=== PATIENT | female | born 1935 | race Caucasian/White ===

== ENCOUNTER → 2018-01-25 11:21 | Outpatient (CLI) | payer MEDICARE, OTHER, SELFPAY ==
[2018-01-25 12:32] LABS: AST(SGOT) 19 U/L (15-37); Alanine Aminotransfer ALT/SGPT 19 U/L (13-56); Albumin, Serum 3.1 g/dL (3.2-5.0); Alkaline Phosphatase 112 U/L (45-117); Anion Gap 5 (5-15); BUN 13 mg/dL (7-18); BUN/Creat Ratio 16.5 RATIO (10-20); Calcium,Total 8.1 mg/dL (8.5-10.1); Chloride 105 mmol/L (98-107); Cholesterol 194 mg/dL (200); Creatinine, Serum 0.79 mg/dL (0.55-1.02); EST Glomerular Filtration Rate 75 mL/min (>60); Est Glom Filt Rate - Afr Amer 90 mL/min (>60); Globulin 3.7 g/dL (2.2-4.2); Glucose 122 mg/dL (74-106); Hemoglobin A1c 6.1 % (4.2-6.3); High Density Lipoprotein 49 mg/dL; Potassium 3.4 mmol/L (3.5-5.1); Protein, Total 6.8 g/dL (6.4-8.2); Sodium Level 139 mmol/L (136-145); Triglycerides 217 mg/dL; Very Low Density Lipoprotein 43 mg/dL (5-40)
== END ==
PROVIDERS: Family Provider Family Medicine; PCP Family Medicine; Visit Provider Family Medicine
DX: E11.65 Type 2 diabetes mellitus with hyperglycemia (principal); E11.8 Type 2 diabetes mellitus with unspecified complications; E03.9 Hypothyroidism, unspecified
CPT/HCPCS: 36415; 80048; 80061; 80076; 83036; 84443

== ENCOUNTER 2018-03-18 13:49 | Outpatient (RCR) | payer MEDICARE, OTHER, SELFPAY ==
[2018-03-18 14:01] LABS: Prothrombin Time Fingerstick 30.3 SEC (11.9-14.4)
== END 2018-03-18 15:00 | disposition home or self-care (01) ==
LOC: MTLAB 13:49
PROVIDERS: Family Provider Family Medicine; PCP Family Medicine; Referring Provider Family Medicine; Visit Provider Family Medicine
DX: Z79.01 Long term (current) use of anticoagulants (principal)
CPT/HCPCS: 36416; 85610

== ENCOUNTER → 2018-07-28 12:44 | Outpatient (CLI) | payer MEDICARE, OTHER, SELFPAY ==
[2018-07-14 09:33] VITALS: BMI 26.9
--- NOTE | 2018-07-28 12:52 | ECHOD_ITS ---
Reason For Study: ATRIAL FIB-FLUTTER Left Ventricle Normal LV size. Left ventricular systolic function is normal. The estimated ejection fraction is 60 %. Unable to assess diastolic dysfunction due to arrhythmia. No regional wall motion abnormalities noted. Right Ventricle Normal RV size. Normal systolic function. Atria The left atrium is mildly enlarged. Normal right atrium. Mitral Valve Normal mitral valve. Tricuspid Valve Normal tricuspid valve. Mild (1+) tricuspid valve insufficiency. Pulmonary artery systolic pressure is 28 mmHg. Aortic Valve Normal aortic valve. Trisinus/trileaflet aortic valve. Pulmonic Valve Normal pulmonic valve. Great Vessels Normal aortic root. The pulmonary artery is normal size. Normal inferior vena cava. Pericardium/Pleural No pericardial effusion. MMode/2D Measurements & Calculations LVIDd: 3.8 cm IVSd: 1.0 cm Ao root diam: 2.9 cm LVIDs: 2.0 cm LVPWd: 0.91 cm RVDd: 3.3 cm FS: 46.4 % LAV(MOD-bp): 70.9 ml LVAd ap4: 18.9 cm2 EDV(MOD-sp2): 50.3 ml LAV(MOD-bp) Indexed: 41.0 ml/m2 EDV(MOD-sp4): 46.2 ml EF(MOD-sp2): 66.2 % LAV(MOD-sp2): 80.0 ml EDV(sp4-el): 49.4 ml LAV(MOD-sp4): 62.3 ml LVAs ap4: 10.0 cm2 ESV(MOD-sp4): 15.5 ml ESV(sp4-el): 15.9 ml EF(MOD-sp4): 66.6 % EF(sp4-el): 67.8 % SV(MOD-sp4): 30.8 ml SV(MOD-sp2): 33.3 ml SV(sp4-el): 33.5 ml LA dimension(2D): 4.2 cm LA A4 area: 21.8 cm2 RA A4 area: 15.9 cm2 Doppler Measurements & Calculations MV E max cecile: 87.9 cm/sec Ao V2 max: 117.4 cm/sec LV V1 max: 56.4 cm/sec Ao max P.5 mmHg LV V1 max P.3 mmHg PA V2 max: 54.7 cm/sec TR max cecile: 241.1 cm/sec TR max P.3 mmHg Interpretation Summary Normal LV size. Left ventricular systolic function is normal. The estimated ejection fraction is 60 %. Unable to assess diastolic dysfunction due to arrhythmia. The left atrium is mildly enlarged. Mild (1+) tricuspid valve insufficiency. Pulmonary artery systolic pressure is 28 mmHg. Ordering Physician: Srikanth Powers Referring Physician: JEFFERY CASTILLO Performed By: Rachel Vides RDCS
== END ==
PROVIDERS: Family Provider Family Medicine; PCP Family Medicine; Referring Provider Internal Medicine Cardiovascular Disease; Visit Provider Internal Medicine Cardiovascular Disease
DX: I48.91 Unspecified atrial fibrillation (principal); I48.92 Unspecified atrial flutter; I25.2 Old myocardial infarction
CPT/HCPCS: 93306

== ENCOUNTER 2018-09-11 10:06 | Inpatient (IN) | payer MEDICARE, OTHER, SELFPAY ==
[2018-07-14 09:33] VITALS: BMI 26.9
[2018-09-11] VITALS (27 sets, daily range): BP systolic 85–119; BP diastolic 44–75; PULSE 66–80; RESP 13–20; TEMP 36.4–37.2; O2SAT 88–98; BMI 28.3; BMI 28.2
[2018-09-11] MEDS: 0.9% Normal Saline 1,000 ML 100 ML IV ×2 (11:39→14:05)
--- NOTE | 2018-09-11 12:01 | PCM.HP.STD ---
Problem List (1) Severe sepsis Status: Acute (2) Ureteral stone Status: Acute (3) UTI (urinary tract infection) Status: Acute (4) CAD (coronary artery disease) Status: Chronic (5) Hyperlipidemia Status: Chronic (6) Essential (primary) hypertension Status: Chronic (7) History of coronary artery stent placement Status: Chronic Comment: PCI-MARYBEL-Mid RCA w 3.0 x 23 mm Promus Stent 12/20/2010 (8) Chronic atrial fibrillation Status: Chronic (9) Pulmonary embolism Status: Chronic History of Present Illness Date of Admission: 09/11/18 Chief Complaint: RLQ pain. The patient is a 83 year old F with pmhx of CAD with prior stents, chronic Afib on coumadin, T2DM, HTN, HLD, kidney stones who was transferred here from [facility] with severe sepsis, UTI, and an obstructing ureteral stone. She presented to the ER with RLQ pain with some pain radiating into the Right flank. She has had ongoing symptoms worsening for about two weeks. She does report dysuria and increased urinary frequency with some red tint to her urine. She also complains of chills. She has had prior surgery for stones. She will be taken to the OR by Dr. Dubose today. She has also been increasingly confused and weak at home. She is forgetful of names and combative at times. She leans forward while walking and has fallen about 7 times. She has a resting tremor. She was recently seen by Dr Felton who started her on antidepressants. [] Past Medical History Past Medical History (Chronic Problems): Chronic Problems (Last Reviewed 07/14/18 @ 10:01 by Srikanth Powers MD) CAD (coronary artery disease) (Chronic) Hyperlipidemia (Chronic) Atherosclerosis of coronary artery of [place] heart without angina pectoris (Chronic) PCI-MARYBEL-Mid RCA w 3.0 x 23 mm Promus Stent 12/20/2010 Essential (primary) hypertension (Chronic) History of coronary artery stent placement (Chronic 12/20/10) PCI-MARYBEL-Mid RCA w 3.0 x 23 mm Promus Stent 12/20/2010 Chronic atrial fibrillation (Chronic) Pulmonary embolism (Chronic) Medical History: Medical History (Last Reviewed 07/14/18 @ 10:01 by Srikanth Powers MD) History of non-ST elevation myocardial infarction (NSTEMI) (Resolved) Onset Date: 12/2010 I25.2 Hyperlipidemia (Chronic) E78.5 Atherosclerosis of coronary artery of [place] heart without angina pectoris (Chronic) I25.10 PCI-MARYBEL-Mid RCA w 3.0 x 23 mm Promus Stent 12/20/2010 Essential (primary) hypertension (Chronic) I10 Chronic atrial fibrillation (Chronic) I48.2 Pulmonary embolism (Chronic) I26.99 History of nephrolithiasis Z87.442 Hypothyroidism E03.9 Allergies codeine Allergy (Verified 07/14/18 09:33) Chest tightness levofloxacin [From Levaquin] Allergy (Verified 07/14/18 09:33) Unknown Penicillins Allergy (Verified 07/14/18 09:33) Rash Qjukmza-Rko-Zvn Reductase Inhibitor Allergy (Verified 07/14/18 09:33) myalgias Sulfa (Sulfonamide Antibiotics) Allergy (Verified 07/14/18 09:33) unknown Home Medications: Ambulatory Orders Medication Instructions Recorded Albuterol IH (ProAir) [Proair Hfa 1 - 2 puff INHALATION Q4H PRN PRN 05/17/15 (SP)Vent Pts] Amlodipine [Norvasc] 10 mg PO DAILY 05/17/15 Aspirin [Aspirin, Baby] 81 mg PO DAILY@0800 05/17/15 Levothyroxine [Synthroid] 50 mcg PO DAILY 05/17/15 Ranitidine [Zantac] 150 mg PO BID 05/17/15 Warfarin [Coumadin (PBKC)] 2 mg PO DAILY 05/17/15 Warfarin [Coumadin ([facility]KC)] 4 mg PO QWEEK 05/17/15 ferrous sulfate 325 mg (65 mg 325 mg PO BID tab 10/27/17 iron) tablet cyanocobalamin (vitamin B-12) 1,000 mcg PO QDAY 10/30/17 1,000 mcg capsule metoprolol tartrate 25 mg tablet 25 mg PO BID 10/30/17 clonazepam 1 mg tablet 1 mg PO BID 07/14/18 esomeprazole magnesium 40 mg 40 mg PO DAILY 07/14/18 capsule,delayed release Surgical History: Surgical History (Last Reviewed 07/14/18 @ 10:01 by Srikanth Powers MD) History of coronary artery stent placement (Chronic) Onset Date: 12/20/10 Z95.5 PCI-MARYBEL-Mid RCA w 3.0 x 23 mm Promus Stent 12/20/2010 History of cataract surgery Z98.49 History of hysterectomy Z90.710 Hx of cholecystectomy Z90.49 Surgical History: cholecystectomy, hysterectomy, knee replacement cyst removal from her left breast Psychiatric History: Depression 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 Denies: Fever, Weight Change HEENT: Denies: Head Aches, Sinus Congestion, Sinus Drainage Cardiovascular: Denies: Chest Pain, Chest Tightness, Edema, Heaviness, Light Headedness, Palpitations Respiratory: Denies: Cough, Shortness of Breath, Shortness of breath at rest, Sputum production, Wheezing Gastrointestinal: Reports: Abdominal Pain - RLQ, - - R flank pain. Denies: Nausea, Vomiting Genitourinary: Reports: Dysuria, Frequency, Hematuria Musculoskeletal: Denies: Joint Pain, Joint Tenderness Skin: Denies: Rash, Wounds Neurological: Denies: Numbness, Tingling, Focal weakness Psychiatric: Denies: Anxiety, Depression, Homicidal Ideations, Suicidal Ideations Hematologic/ Lymphatic: Denies: Easy Bruising, Easy Bleeding VTE Information - Inpt Only VTE Present on Admission: No VTE Mechan Device Prophylaxis: None VTE Pharm Prophylaxis ordered?: No Reason prophylaxis not ordered:: Medical Contraindication Patient Problems: Active and Suspected Problems (Last Reviewed 07/14/18 @ 10:01 by Srikanth Powers MD) UTI (urinary tract infection) (Acute) Ureteral stone (Acute) Severe sepsis (Acute) - Physical Exam General: Alert, Oriented x3, Cooperative HEENT: Atraumatic, PERRLA, EOMI, Normocephalic Neck: Supple, No JVD, Negative Carotid Bruits Lungs: Clear to auscultation, Normal air movement Cardiovascular: No murmurs, Irregular Rate Abdomen: Bowel Sounds Present, Soft, Tender - mild RLQ tenderness Extremities: No edema, Capillary Refill Less than 3 Seconds Skin: No rashes, No breakdown Musculoskeletal: No Tenderness to Palpation of Joints or Extremities Neurological: Cranial nerves II-XII grossly intact Psych/Mental Status: Normal Affect, Appropriate Vital Signs Temp Pulse Resp BP Pulse Ox 98.8 F 78 17 93/53 L 94 09/11/18 11:00 09/11/18 11:00 09/11/18 11:00 09/11/18 11:00 09/11/18 11:00 Oxygen Flow Rate (L/min) 2 Oxygen Delivery Method Nasal Cannula Weight: 165 lb 2.02 oz Body Mass Index (BMI) 28.2 Intake and Output for Last 24 Hours 09/09/18 09/10/18 09/11/18 23:59 23:59 23:59 Intake Total 129 / 129 Output Total 0 / 0 Balance 129 / 129 Laboratory Tests Past 24 Hrs 09/11/18 11:00 Blood Type Pending Assessment/Plan All Active Problems (Last Reviewed 07/14/18 @ 10:01 by Srikanth Powers MD) UTI (urinary tract infection) (Acute) Ureteral stone (Acute) Severe sepsis (Acute) History of non-ST elevation myocardial infarction (NSTEMI) (Resolved 12/2010) 1. Acute severe sepsis 2/2 UTI and right ureteral stone - rocephin. At [facility] had [facility] with right obstructing ureteral stone, + UA, low white count, elevated lactate. Dr. Dubose consulted, pt to OR today. 2. Chronic Afib - rate controlled. Continue metoprolol, hold warfarin. Will receive FFP prior to surgery. 3. Worsening home weakness, poor ambulation, confusion, combativeness-suspect dementia, possibly Parkinson's-start Aricept. 4. Ecsacqzfbz-ppsxqov-vtscpyhw seen by Dr. Felton and started on antidepressant-we will continue. Hold clonazepam for now given borderline low blood pressure. 5. History of CAD-had stents 9 years ago[address] Powers. 6. Hypertension-borderline low. Will monitor. 7. GERD-on PPI. 8. Hypothyroidism-continue Synthroid. DVT prophylaxis: SCDs. Discharge planning: PT and OT. Lives with her , has multiple falls recently and worsening mentation at home. May need nursing home placement. This patient was seen by Grady Joel PA-C under the supervision of Doctor Loredo.
--- NOTE | 2018-09-11 12:10 | NURSING ---
ENTRY LEVEL FINANCE Kim called for patient to be brought to PACU. Celina RN informed ENTRY LEVEL FINANCE that this RN was in the process of restarting a new IV because one was leaking. Per Celina, FILING CLERK RN stated to bring the patient down sooner and she will start the IV. New IV not started per ENTRY LEVEL FINANCE request. This RN then called PACU and spoke with Kim RN that the FFP was not ready yet and would be ready in about 20-30mins per blood bank, and should patient be brought down before FFP given? The ENTRY LEVEL FINANCE stated that she will call this RN back after she confirms with DRY JANITOR. Several minutes later, Kim ENTRY LEVEL FINANCE called ICU back and Celina NIETO spoke with her. Accoding to Celina NIEOT, ENTRY LEVEL FINANCE stated to bring the patient down however, ICU staff will need to bring them the FFP due to staffing of PACU.
--- NOTE | 2018-09-11 12:11 | HP.PCM_ITS ---
Problem List (1) Severe sepsis Status: Acute (2) Ureteral stone Status: Acute (3) UTI (urinary tract infection) Status: Acute (4) CAD (coronary artery disease) Status: Chronic (5) Hyperlipidemia Status: Chronic (6) Essential (primary) hypertension Status: Chronic (7) History of coronary artery stent placement Status: Chronic Comment: PCI-MARYBEL-Mid RCA w 3.0 x 23 mm Promus Stent 12/20/2010 (8) Chronic atrial fibrillation Status: Chronic (9) Pulmonary embolism Status: Chronic History of Present Illness Date of Admission: 09/11/18 Chief Complaint: RLQ pain. The patient is a 83 year old F with pmhx of CAD with prior stents, chronic Afib on coumadin, T2DM, HTN, HLD, kidney stones who was transferred here from [facility] with severe sepsis, UTI, and an obstructing ureteral stone. She presented to the ER with RLQ pain with some pain radiating into the Right flank. She has had ongoing symptoms worsening for about two weeks. She does report dysuria and increased urinary frequency with some red tint to her urine. She also complains of chills. She has had prior surgery for stones. She will be taken to the OR by Dr. Dubose today. She has also been increasingly confused and weak at home. She is forgetful of names and combative at times. She leans forward while walking and has fallen about 7 times. She has a resting tremor. She was recently seen by Dr Felton who started her on antidepressants. [] Past Medical History Past Medical History (Chronic Problems): Chronic Problems (Last Reviewed 07/14/18 @ 10:01 by Srikanth Powers MD) CAD (coronary artery disease) (Chronic) Hyperlipidemia (Chronic) Atherosclerosis of coronary artery of [place] heart without angina pectoris (Chronic) PCI-MARYBEL-Mid RCA w 3.0 x 23 mm Promus Stent 12/20/2010 Essential (primary) hypertension (Chronic) History of coronary artery stent placement (Chronic 12/20/10) PCI-MARYBEL-Mid RCA w 3.0 x 23 mm Promus Stent 12/20/2010 Chronic atrial fibrillation (Chronic) Pulmonary embolism (Chronic) Medical History: Medical History (Last Reviewed 07/14/18 @ 10:01 by Srikanth Powers MD) History of non-ST elevation myocardial infarction (NSTEMI) (Resolved) Onset Date: 12/2010 I25.2 Hyperlipidemia (Chronic) E78.5 Atherosclerosis of coronary artery of [place] heart without angina pectoris (Chronic) I25.10 PCI-MARYBEL-Mid RCA w 3.0 x 23 mm Promus Stent 12/20/2010 Essential (primary) hypertension (Chronic) I10 Chronic atrial fibrillation (Chronic) I48.2 Pulmonary embolism (Chronic) I26.99 History of nephrolithiasis Z87.442 Hypothyroidism E03.9 Allergies codeine Allergy (Verified 07/14/18 09:33) Chest tightness levofloxacin [From Levaquin] Allergy (Verified 07/14/18 09:33) Unknown Penicillins Allergy (Verified 07/14/18 09:33) Rash Mcbhfzl-Nvc-Sus Reductase Inhibitor Allergy (Verified 07/14/18 09:33) myalgias Sulfa (Sulfonamide Antibiotics) Allergy (Verified 07/14/18 09:33) unknown Home Medications: Ambulatory Orders Medication Instructions Recorded Albuterol IH (ProAir) [Proair Hfa 1 - 2 puff INHALATION Q4H PRN PRN 05/17/15 (SP)Vent Pts] Amlodipine [Norvasc] 10 mg PO DAILY 05/17/15 Aspirin [Aspirin, Baby] 81 mg PO DAILY@0800 05/17/15 Levothyroxine [Synthroid] 50 mcg PO DAILY 05/17/15 Ranitidine [Zantac] 150 mg PO BID 05/17/15 Warfarin [Coumadin (PBKC)] 2 mg PO DAILY 05/17/15 Warfarin [Coumadin (PBKC)] 4 mg PO QWEEK 05/17/15 ferrous sulfate 325 mg (65 mg 325 mg PO BID tab 10/27/17 iron) tablet cyanocobalamin (vitamin B-12) 1,000 mcg PO QDAY 10/30/17 1,000 mcg capsule metoprolol tartrate 25 mg tablet 25 mg PO BID 10/30/17 clonazepam 1 mg tablet 1 mg PO BID 07/14/18 esomeprazole magnesium 40 mg 40 mg PO DAILY 07/14/18 capsule,delayed release Surgical History: Surgical History (Last Reviewed 07/14/18 @ 10:01 by Srikanth Powers MD) History of coronary artery stent placement (Chronic) Onset Date: 12/20/10 Z95.5 PCI-MARYBEL-Mid RCA w 3.0 x 23 mm Promus Stent 12/20/2010 History of cataract surgery Z98.49 History of hysterectomy Z90.710 Hx of cholecystectomy Z90.49 Surgical History: cholecystectomy, hysterectomy, knee replacement cyst removal from her left breast Psychiatric History: Depression 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 Denies: Fever, Weight Change HEENT: Denies: Head Aches, Sinus Congestion, Sinus Drainage Cardiovascular: Denies: Chest Pain, Chest Tightness, Edema, Heaviness, Light Headedness, Palpitations Respiratory: Denies: Cough, Shortness of Breath, Shortness of breath at rest, Sputum production, Wheezing Gastrointestinal: Reports: Abdominal Pain - RLQ, - - R flank pain. Denies: Nausea, Vomiting Genitourinary: Reports: Dysuria, Frequency, Hematuria Musculoskeletal: Denies: Joint Pain, Joint Tenderness Skin: Denies: Rash, Wounds Neurological: Denies: Numbness, Tingling, Focal weakness Psychiatric: Denies: Anxiety, Depression, Homicidal Ideations, Suicidal Ideations Hematologic/ Lymphatic: Denies: Easy Bruising, Easy Bleeding VTE Information - Inpt Only VTE Present on Admission: No VTE Mechan Device Prophylaxis: None VTE Pharm Prophylaxis ordered?: No Reason prophylaxis not ordered:: Medical Contraindication Patient Problems: Active and Suspected Problems (Last Reviewed 07/14/18 @ 10:01 by Srikanth Powers MD) UTI (urinary tract infection) (Acute) Ureteral stone (Acute) Severe sepsis (Acute) - Physical Exam General: Alert, Oriented x3, Cooperative HEENT: Atraumatic, PERRLA, EOMI, Normocephalic Neck: Supple, No JVD, Negative Carotid Bruits Lungs: Clear to auscultation, Normal air movement Cardiovascular: No murmurs, Irregular Rate Abdomen: Bowel Sounds Present, Soft, Tender - mild RLQ tenderness Extremities: No edema, Capillary Refill Less than 3 Seconds Skin: No rashes, No breakdown Musculoskeletal: No Tenderness to Palpation of Joints or Extremities Neurological: Cranial nerves II-XII grossly intact Psych/Mental Status: Normal Affect, Appropriate Vital Signs Temp Pulse Resp BP Pulse Ox 98.8 F 78 17 93/53 L 94 09/11/18 11:00 09/11/18 11:00 09/11/18 11:00 09/11/18 11:00 09/11/18 11:00 Oxygen Flow Rate (L/min) 2 Oxygen Delivery Method Nasal Cannula Weight: 165 lb 2.02 oz Body Mass Index (BMI) 28.2 Intake and Output for Last 24 Hours 09/09/18 09/10/18 09/11/18 23:59 23:59 23:59 Intake Total 129 / 129 Output Total 0 / 0 Balance 129 / 129 Laboratory Tests Past 24 Hrs 09/11/18 11:00 Blood Type Pending Assessment/Plan All Active Problems (Last Reviewed 07/14/18 @ 10:01 by Srikanth Powers MD) UTI (urinary tract infection) (Acute) Ureteral stone (Acute) Severe sepsis (Acute) History of non-ST elevation myocardial infarction (NSTEMI) (Resolved 12/2010) 1. Acute severe sepsis 2/2 UTI and right ureteral stone - rocephin. At [facility] had [facility] with right obstructing ureteral stone, + UA, low white count, elevated lactate. Dr. Dubose consulted, pt to OR today. 2. Chronic Afib - rate controlled. Continue metoprolol, hold warfarin. Will receive FFP prior to surgery. 3. Worsening home weakness, poor ambulation, confusion, combativeness-suspect dementia, possibly Parkinson's-start Aricept. 4. Jzxbhknccd-qlkgffn-cbviislb seen by Dr. Felton and started on antidepressant-we will continue. Hold clonazepam for now given borderline low blood pressure. 5. History of CAD-had stents 9 years ago[address] with [address] Powers. 6. Hypertension-borderline low. Will monitor. 7. GERD-on PPI. 8. Hypothyroidism-continue Synthroid. DVT prophylaxis: SCDs. Discharge planning: PT and OT. Lives with her , has multiple falls recently and worsening mentation at home. May need shelter placement. This patient was seen by Grady Joel PA-C under the supervision of Doctor Loredo.
--- NOTE | 2018-09-11 12:15 | NURSING ---
to PACU per bed, [employer] LIA[employer] OFFICER in attendance
--- NOTE | 2018-09-11 12:42 | PCM.CONS.U ---
Problem List (1) Ureteral stone Status: Acute Comment: right Reason for Consult Date of Consultation: 09/11/18 Reason for Consultation: Obstructing ureteral calculus infection History of Present Illness: The patient is a 83 year old female presented to hospital with an obstructing stone in the distal right ureter and infection with a urinary tract infection and sepsis low blood pressure she was transferred from an outside hospital for further care. Past Medical History Past Medical History (Chronic Problems): Chronic Problems (Last Reviewed 07/14/18 @ 10:01 by Srikanth Powers MD) CAD (coronary artery disease) (Chronic) Hyperlipidemia (Chronic) Atherosclerosis of coronary artery of [place] heart without angina pectoris (Chronic) PCI-MARYBEL-Mid RCA w 3.0 x 23 mm Promus Stent 12/20/2010 Essential (primary) hypertension (Chronic) History of coronary artery stent placement (Chronic 12/20/10) PCI-MARYBEL-Mid RCA w 3.0 x 23 mm Promus Stent 12/20/2010 Chronic atrial fibrillation (Chronic) Pulmonary embolism (Chronic) Medical History: Medical History (Last Reviewed 09/11/18 @ 12:43 by Baljinder Dubose MD) History of non-ST elevation myocardial infarction (NSTEMI) (Resolved) Onset Date: 12/2010 I25.2 Hyperlipidemia (Chronic) E78.5 Atherosclerosis of coronary artery of [place] heart without angina pectoris (Chronic) I25.10 PCI-MARYBEL-Mid RCA w 3.0 x 23 mm Promus Stent 12/20/2010 Essential (primary) hypertension (Chronic) I10 Chronic atrial fibrillation (Chronic) I48.2 Pulmonary embolism (Chronic) I26.99 History of nephrolithiasis Z87.442 Hypothyroidism E03.9 Allergies codeine Allergy (Verified 07/14/18 09:33) Chest tightness levofloxacin [From Levaquin] Allergy (Verified 07/14/18 09:33) Unknown Penicillins Allergy (Verified 07/14/18 09:33) Rash Befjeix-Rei-Luj Reductase Inhibitor Allergy (Verified 07/14/18 09:33) myalgias Sulfa (Sulfonamide Antibiotics) Allergy (Verified 07/14/18 09:33) unknown Home Medications: Ambulatory Orders Medication Instructions Recorded Albuterol IH (ProAir) [Proair Hfa 1 - 2 puff INHALATION Q4H PRN PRN 05/17/15 (SP)Vent Pts] Amlodipine [Norvasc] 10 mg PO DAILY 05/17/15 Aspirin [Aspirin, Baby] 81 mg PO DAILY@0800 05/17/15 Levothyroxine [Synthroid] 50 mcg PO DAILY 05/17/15 Ranitidine [Zantac] 150 mg PO BID 05/17/15 Warfarin [Coumadin ([facility])] 2 mg PO DAILY 05/17/15 Warfarin [Coumadin ([facility])] 4 mg PO QWEEK 05/17/15 ferrous sulfate 325 mg (65 mg 325 mg PO BID tab 10/27/17 iron) tablet cyanocobalamin (vitamin B-12) 1,000 mcg PO QDAY 10/30/17 1,000 mcg capsule metoprolol tartrate 25 mg tablet 25 mg PO BID 10/30/17 clonazepam 1 mg tablet 1 mg PO BID 07/14/18 esomeprazole magnesium 40 mg 40 mg PO DAILY 07/14/18 capsule,delayed release Surgical History: Surgical History (Last Reviewed 09/11/18 @ 12:43 by Baljinder Dubose MD) History of coronary artery stent placement (Chronic) Onset Date: 12/20/10 Z95.5 PCI-MARYBEL-Mid RCA w 3.0 x 23 mm Promus Stent 12/20/2010 History of cataract surgery Z98.49 History of hysterectomy Z90.710 Hx of cholecystectomy Z90.49 Surgical History: cholecystectomy, hysterectomy, knee replacement cyst removal from her left breast Psychiatric History: 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 Denies: Weight Change HEENT: Denies: Head Aches, Sinus Congestion, Sinus Drainage Cardiovascular: Denies: Chest Pain, Palpitations Respiratory: Denies: Cough, Shortness of breath at rest, Sputum production Gastrointestinal: Reports: Abdominal Pain. Denies: Nausea, Vomiting Genitourinary: Denies: Dysuria Musculoskeletal: Denies: Joint Pain, Joint Tenderness Skin: Denies: Rash, Wounds Neurological: Denies: Numbness, Tingling, Focal weakness Psychiatric: Denies: Anxiety, Depression, Homicidal Ideations, Suicidal Ideations Hematologic/ Lymphatic: Denies: Easy Bruising, Easy Bleeding Physical Exam - Physical Exam Vital Signs Temp 98.7 F 09/11/18 12:00 Pulse 76 09/11/18 12:00 Resp 18 09/11/18 12:00 BP 97/46 L 09/11/18 12:00 Pulse Ox 90 09/11/18 12:00 Intake & Output 09/09/18 09/10/18 09/11/18 23:59 23:59 23:59 Intake Total 129 / 129 Output Total 0 / 0 Balance 129 / 129 Weight: 74.9 kg Intake: Oral 0 / 0 IV fluid/meds 129 / 129 Output: Urine 0 / 0 General: Alert, Oriented x3 HEENT: Atraumatic Oral: Moist Mucosa Neck: Supple Lungs: Normal air movement Cardiovascular: Regular rate Abdomen: Soft, Obese Rectal: Exam deferred Laboratory Tests Past 24 Hrs 09/11/18 11:00 Blood Type O POSITIVE Assessment/Plan All Active Problems (Last Reviewed 07/14/18 @ 10:01 by Srikanth Powers MD) UTI (urinary tract infection) (Acute) Ureteral stone (Acute) Severe sepsis (Acute) History of non-ST elevation myocardial infarction (NSTEMI) (Resolved 12/2010) 83-year-old female with obstructing stone in the right ureter, she is on IV antibiotics, clinically stable at this point but is septic. Will take her to surgery today for cystoscopy and right stent placement. Spoke with the family and the patient regarding the condition she understands at this point where it is going to alleviate the blockage and the infection with a stent and that later on showed to have surgery to remove the stone. The patient signed a consent form all her questions were addressed, I spoke to the family daughters and son in law, all their questions were addressed and stent will be placed today hopefully she will be stable to the floor afterwards.
--- NOTE | 2018-09-11 12:45 | CON.PCM_ITS ---
Problem List (1) Ureteral stone Status: Acute Comment: right Reason for Consult Date of Consultation: 09/11/18 Reason for Consultation: Obstructing ureteral calculus infection History of Present Illness: The patient is a 83 year old female presented to hospital with an obstructing stone in the distal right ureter and infection with a urinary tract infection and sepsis low blood pressure she was transferred from an outside hospital for further care. Past Medical History Past Medical History (Chronic Problems): Chronic Problems (Last Reviewed 07/14/18 @ 10:01 by Srikanth Powers MD) CAD (coronary artery disease) (Chronic) Hyperlipidemia (Chronic) Atherosclerosis of coronary artery of [place] heart without angina pectoris (Chronic) PCI-MARYBEL-Mid RCA w 3.0 x 23 mm Promus Stent 12/20/2010 Essential (primary) hypertension (Chronic) History of coronary artery stent placement (Chronic 12/20/10) PCI-MARYBEL-Mid RCA w 3.0 x 23 mm Promus Stent 12/20/2010 Chronic atrial fibrillation (Chronic) Pulmonary embolism (Chronic) Medical History: Medical History (Last Reviewed 09/11/18 @ 12:43 by Baljinder Dubose MD) History of non-ST elevation myocardial infarction (NSTEMI) (Resolved) Onset Date: 12/2010 I25.2 Hyperlipidemia (Chronic) E78.5 Atherosclerosis of coronary artery of [place] heart without angina pectoris (Chronic) I25.10 PCI-MARYBEL-Mid RCA w 3.0 x 23 mm Promus Stent 12/20/2010 Essential (primary) hypertension (Chronic) I10 Chronic atrial fibrillation (Chronic) I48.2 Pulmonary embolism (Chronic) I26.99 History of nephrolithiasis Z87.442 Hypothyroidism E03.9 Allergies codeine Allergy (Verified 07/14/18 09:33) Chest tightness levofloxacin [From Levaquin] Allergy (Verified 07/14/18 09:33) Unknown Penicillins Allergy (Verified 07/14/18 09:33) Rash Vgfwlqz-Imz-Spp Reductase Inhibitor Allergy (Verified 07/14/18 09:33) myalgias Sulfa (Sulfonamide Antibiotics) Allergy (Verified 07/14/18 09:33) unknown Home Medications: Ambulatory Orders Medication Instructions Recorded Albuterol IH (ProAir) [Proair Hfa 1 - 2 puff INHALATION Q4H PRN PRN 05/17/15 (SP)Vent Pts] Amlodipine [Norvasc] 10 mg PO DAILY 05/17/15 Aspirin [Aspirin, Baby] 81 mg PO DAILY@0800 05/17/15 Levothyroxine [Synthroid] 50 mcg PO DAILY 05/17/15 Ranitidine [Zantac] 150 mg PO BID 05/17/15 Warfarin [Coumadin ([facility])] 2 mg PO DAILY 05/17/15 Warfarin [Coumadin ([facility])] 4 mg PO QWEEK 05/17/15 ferrous sulfate 325 mg (65 mg 325 mg PO BID tab 10/27/17 iron) tablet cyanocobalamin (vitamin B-12) 1,000 mcg PO QDAY 10/30/17 1,000 mcg capsule metoprolol tartrate 25 mg tablet 25 mg PO BID 10/30/17 clonazepam 1 mg tablet 1 mg PO BID 07/14/18 esomeprazole magnesium 40 mg 40 mg PO DAILY 07/14/18 capsule,delayed release Surgical History: Surgical History (Last Reviewed 09/11/18 @ 12:43 by Baljinder Dubose MD) History of coronary artery stent placement (Chronic) Onset Date: 12/20/10 Z95.5 PCI-MARYBEL-Mid RCA w 3.0 x 23 mm Promus Stent 12/20/2010 History of cataract surgery Z98.49 History of hysterectomy Z90.710 Hx of cholecystectomy Z90.49 Surgical History: cholecystectomy, hysterectomy, knee replacement cyst removal from her left breast Psychiatric History: Depression 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 Denies: Weight Change HEENT: Denies: Head Aches, Sinus Congestion, Sinus Drainage Cardiovascular: Denies: Chest Pain, Palpitations Respiratory: Denies: Cough, Shortness of breath at rest, Sputum production Gastrointestinal: Reports: Abdominal Pain. Denies: Nausea, Vomiting Genitourinary: Denies: Dysuria Musculoskeletal: Denies: Joint Pain, Joint Tenderness Skin: Denies: Rash, Wounds Neurological: Denies: Numbness, Tingling, Focal weakness Psychiatric: Denies: Anxiety, Depression, Homicidal Ideations, Suicidal Ideations Hematologic/ Lymphatic: Denies: Easy Bruising, Easy Bleeding Physical Exam - Physical Exam Vital Signs Temp 98.7 F 09/11/18 12:00 Pulse 76 09/11/18 12:00 Resp 18 09/11/18 12:00 BP 97/46 L 09/11/18 12:00 Pulse Ox 90 09/11/18 12:00 Intake & Output 09/09/18 09/10/18 09/11/18 23:59 23:59 23:59 Intake Total 129 / 129 Output Total 0 / 0 Balance 129 / 129 Weight: 74.9 kg Intake: Oral 0 / 0 IV fluid/meds 129 / 129 Output: Urine 0 / 0 General: Alert, Oriented x3 HEENT: Atraumatic Oral: Moist Mucosa Neck: Supple Lungs: Normal air movement Cardiovascular: Regular rate Abdomen: Soft, Obese Rectal: Exam deferred Laboratory Tests Past 24 Hrs 09/11/18 11:00 Blood Type O POSITIVE Assessment/Plan All Active Problems (Last Reviewed 07/14/18 @ 10:01 by Srikanth Powers MD) UTI (urinary tract infection) (Acute) Ureteral stone (Acute) Severe sepsis (Acute) History of non-ST elevation myocardial infarction (NSTEMI) (Resolved 12/2010) 83-year-old female with obstructing stone in the right ureter, she is on IV antibiotics, clinically stable at this point but is septic. Will take her to surgery today for cystoscopy and right stent placement. Spoke with the family and the patient regarding the condition she understands at this point where it is going to alleviate the blockage and the infection with a stent and that later on showed to have surgery to remove the stone. The patient signed a consent form all her questions were addressed, I spoke to the family daughters and son in law, all their questions were addressed and stent will be placed today hopefully she will be stable to the floor afterwards.
[2018-09-11] MEDS: Lidocaine Jelly 2% 20 ML Syringe (URO-JET) 20 APPLIC (13:02)
--- NOTE | 2018-09-11 13:23 | PCM.OPRPT ---
Problem List (1) Ureteral stone Status: Acute Comment: right Report of Operation Date of Procedure: 09/11/18 Pre-Operative Diagnosis: Right proximal 8 mm obstructing ureteral calculi with severe sepsis and hydronephrosis and pyelonephritis Post-Operative Diagnosis: The same Surgery/Procedure Performed:: Cystoscopy right retrograde pyelogram, right stent placement interpretation of radiographic images. Description of Surgical Findings:: 83-year-old female taken back to the operating room after smooth induction of local anesthesia she was placed in dorsolithotomy position on inspection she had a severe cystocele went into the bladder with a 21 [place] rigid cystourethroscope no tumors or stones were identified within the bladder she had fairly foul-smelling urine which was drained, I then cannulated the right ureteral orifice with a Glidewire advanced the Pollack catheter up into the kidney contrast was already in the kidney from prior contrast we then reviewed the retrograde pyelogram advanced a wire past the stone hard to see the stone, place a stent advancing the stent over the wire and then once a stent was in good position I pulled the wire the stent coiled in the kidney bladder and kidney renal pelvis in good position we then drained the bladder I then sent off for specimen as a culture from the urine. Patient's anesthesia was reversed she is taken back to PACU in good condition. Type of Anesthesia:: Local MAC Drains: stent right. - Admit VTE Documentation VTE Present on Admission: No VTE Mechan Device Prophylaxis: SCD's
--- NOTE | 2018-09-11 14:01 | EKG12_ITS ---
Test Reason : POST OP Blood Pressure : / mmHG Vent. Rate : 073 BPM Atrial Rate : 340 BPM P-R Int : 000 ms QRS Dur : 088 ms QT Int : 474 ms P-R-T Axes : 000 -12 -38 degrees QTc Int : 522 ms Atrial fibrillation Nonspecific T wave abnormality Abnormal ECG No previous ECGs available Confirmed by TAMMIE BERMUDEZ, RAFAL ([id number]), data warehouse analyst JERE ROBERTO ([id number] on 09/16/2018 3:49:23 PM Referred By: Leoncio Ag Confirmed By:RAFAL CHO MD
[2018-09-11] MEDS: Ipratropium/Albuterol Sulfate 3 ML AMPUL.NEB INHALATION ×2 (14:05→19:29)
[2018-09-11] MEDS: Acetaminophen 325 MG Tablet 650 MG PO (17:41)
--- NOTE | 2018-09-11 18:06 | RAD_ITS ---
HISTORY: SOB, POST OP CYSTO EXAM/TECHNIQUE: XR Chest 2 Views: COMPARISON: 10/10/16 CXR. FINDINGS: # of images incl. paperwork: 2 Small layering bilateral pleural effusions with adjacent atelectasis are new compared to prior. Mild interstitial prominence bilaterally. No consolidation. No pneumothorax. Heart size within normal limits. Atherosclerosis thoracic aorta. RAD/Chest PA and Lateral IMPRESSION: Smaller and bilateral pleural effusions and mild interstitial prominence. at 0426 Reported and signed by: Isael Rich MD Electronically Signed: Isael Rich, at 4:25 EDT Tel , Service support ,
--- NOTE | 2018-09-11 19:02 | NURSING ---
care & documentation provided by SN Mojgan, done under the supervision of this RN.
[2018-09-11] MEDS: Donepezil HCl 5 MG Tablet PO (22:56)
[2018-09-11] MEDS: Haloperidol Lactate 5 MG/ML Vial 2 MG IV (23:37)
[2018-09-12] VITALS (21 sets, daily range): BP systolic 114–131; BP diastolic 57–70; PULSE 71–105; RESP 16–20; TEMP 36.4–37; O2SAT 89–94
[2018-09-12] MEDS: Ondansetron 4 MG/2 ML Vial IV (06:22)
[2018-09-12] MEDS: 0.9% NaCl Peripheral Flush Adult/Peds IV ×4 (06:22→21:12)
[2018-09-12 06:33] LABS: Absolute Lymphocyte Count 1.34 X10^3/ul (0.83-4.51); Absolute Neutrophil Count 15.8 X10^3/uL (2.0-7.7); Hematocrit 30.3 % (37-47); Hemoglobin 10.2 g/dl (12.0-15.0); Lymphocyte # 1.34 X10^3/ul (4.0); Lymphocyte % 7.4 % (19-41); Mean Corp Hgb Conc 33.7 g/gl (32-36); Mean Corpuscular Hgb 30.4 pg (27.0-32.0); Mean Corpuscular Volume 90.4 fL (81-99); Mean Platelet Vol. 9.9 fl (6.2-12.0); Monocyte# 0.85 X10^3/uL; Monocyte% 4.7 % (0-10); Neutrophil # 15.79 X10^3/uL (2.7-7.7); Neutrophil % 86.7 % (47-70); Platelet Count 182 K/mm3 (150-450); RBC Distribution Width CV 15.1 % (11.6-14.6); RBC Distribution Width SD 49.6 fl (35.1-43.9); Red Blood Count 3.35 M/mm3 (4.2-5.4); White Blood Count 18.2 K/mm3 (4.4-11.0)
[2018-09-12 06:41] LABS: POSITIVE COUNT NO; POSITIVE DIFFERENTIAL NO; POSITIVE MORPHOLOGY NO
[2018-09-12 06:46] LABS: Anion Gap 7 (5-15); BUN 24 mg/dL (7-18); Calcium,Total 7.5 mg/dL (8.5-10.1); Chloride 110 mmol/L (98-107); Creatinine, Serum 1.09 mg/dL (0.55-1.02); EST Glomerular Filtration Rate 51 mL/min (>60); Est Glom Filt Rate - Afr Amer 62 mL/min (>60); Estimated Creatinine Clearance 34.95 ml/min; Glucose 119 mg/dL (74-106); Potassium 3.8 mmol/L (3.5-5.1); Sodium Level 142 mmol/L (136-145)
[2018-09-12] MEDS: Ipratropium/Albuterol Sulfate 3 ML AMPUL.NEB INHALATION ×4 (06:55→18:55)
[2018-09-12 06:56] LABS: International Normalized Ratio 2.5; Prothrombin Time (Protime)PT. 27.2 SECONDS (11.7-14.9)
[2018-09-12] MEDS: Furosemide 40 MG/4 ML Vial IV ×2 (09:06→14:06)
[2018-09-12] MEDS: Metoprolol Tartrate 25 MG Tablet PO ×2 (09:07→21:11)
[2018-09-12] MEDS: amLODIPine 10 MG Tablet PO (09:07)
--- NOTE | 2018-09-12 11:10 | PCM.PROGNOTE ---
Patient Problems: Active and Suspected Problems (Last Reviewed 09/11/18 @ 12:43 by Baljinder Dubose MD) UTI (urinary tract infection) (Acute) Ureteral stone (Acute) right Severe sepsis (Acute) Subjective: Patient was seen and examined today, she is on supplemental oxygen and her chest x-ray shows evidence of pulmonary congestion last night. I decided to give the patient IV Lasix as a single dose today to see if she will put out some urine. Patient responds appropriately to simple questions, last night she became confused and aggressive. I talked to the patient's family today (both her daughters)-they believe she is not taking her home medications appropriately and that she is taking Klonopin too frequently at home instead on an as needed basis. They also believe the patient's is giving her Prozac not on a daily basis but on an as needed basis. I feel again that the patient most probably has dementia based on her daughter's descriptions of how she interacts with her . I started her on Aricept last night-I believe this will need to be continued when she goes home. Patient's cultures are pending at this time, her white count is elevated today at 18.2, INR is therapeutic at 2.5-I will restart her Coumadin today. Creatinine is a little high at 1.09 - Physical Exam General: Alert, Oriented x3, Cooperative, No apparent distress, Well developed HEENT: Atraumatic, PERRLA, EOMI, Normocephalic Oral: Moist Mucosa Neck: Supple, No Nuchal Rigidity, Trachea Midline, Thyroid Normal Size and Texture Lungs: Normal air movement, No rhonchi, No wheeze, Rales - Inspiratory rales are noted over the patient's right lower lung field Cardiovascular: PMI Normal, Irregular Rate, No rub noted Abdomen: Bowel Sounds Present, Soft, Non Tender, Non-Distended, No hernias noted Extremities: No clubbing, No cyanosis, No edema, Capillary Refill Less than 3 Seconds Skin: No rashes, No breakdown Neurological: Cranial nerves II-XII grossly intact, Neuro grossly intact, Sensory exam intact to light touch and pain Psych/Mental Status: Normal Affect, Appropriate Vital Signs Temp Pulse Resp BP Pulse Ox 97.6 F L 93 20 H 117/65 94 09/12/18 09:10 09/12/18 09:10 09/12/18 09:10 09/12/18 09:10 09/12/18 09:10 Oxygen Flow Rate (L/min) 10 Oxygen Delivery Method Nasal Cannula Weight: 74.9 kg Body Mass Index (BMI) 28.2 Intake and Output for Last 24 Hours 09/10/18 09/11/18 09/12/18 23:59 23:59 23:59 Intake Total 2419 / 2419 120 / 120 Output Total 0 / 0 Balance 2419 / 2419 120 / 120 Laboratory Tests Past 24 Hrs 09/11/18 09/12/18 09/12/18 11:00 06:10 06:10 WBC 18.2 H RBC 3.35 L Hgb 10.2 L Hct 30.3 L MCV 90.4 MCH 30.4 MCHC 33.7 RDW 15.1 H RDW Differential 49.6 H Plt Count 182 MPV 9.9 Immature Gran % (Auto) 1.200 H Neut % (Auto) 86.7 H Lymph % (Auto) 7.4 L [place] % (Auto) 4.7 Eos % (Auto) 0.0 Baso % (Auto) 0.0 Absolute Neuts (auto) 15.8 H Absolute Lymphs (auto) 1.34 Total Counted Not Reportable PT INR Sodium 142 Potassium 3.8 Chloride 110 H Carbon Dioxide 25.0 Anion Gap 7 BUN 24 H Creatinine 1.09 H Estim Creat Clear Calc 34.95 Est GFR (MDRD) Af Amer 62 Est GFR (MDRD) Non-Af 51 L BUN/Creatinine Ratio 22.0 H Glucose 119 H Calcium 7.5 L Blood Type O POSITIVE 09/12/18 06:10 WBC RBC Hgb Hct MCV MCH MCHC RDW RDW Differential Plt Count MPV Immature Gran % (Auto) Neut % (Auto) Lymph % (Auto) [place] % (Auto) Eos % (Auto) Baso % (Auto) Absolute Neuts (auto) Absolute Lymphs (auto) Total Counted PT 27.2 H INR 2.5 Sodium Potassium Chloride Carbon Dioxide Anion Gap BUN Creatinine Estim Creat Clear Calc Est GFR (MDRD) Af Amer Est GFR (MDRD) Non-Af BUN/Creatinine Ratio Glucose Calcium Blood Type Medical Necessity - Tobacco Use Smoking Status: Never smoker Tobacco Use: Non-smoker Assessment/Plan All Active Problems (Last Reviewed 09/11/18 @ 12:43 by Baljinder Dubose MD) UTI (urinary tract infection) (Acute) Ureteral stone (Acute) Severe sepsis (Acute) History of non-ST elevation myocardial infarction (NSTEMI) (Resolved 12/2010) #1 acute severe sepsis secondary to pyelonephritis from right ureteral obstructive stone-status post right ureteral stent-continue Rocephin at this time, await culture results #2 pyelonephritis-probably from gram-negative bacteria, continue antibiotic coverage, await culture #3 chronic atrial fib-warfarin will be restarted today #4 hypoxia secondary to fluid overload-patient will be given IV Lasix today, she may need an additional dose today, patient is not being given fluids at this time #5 probable dementia #6 hypothyroidism Code Visit Inpatient E&M: 39158 Subs Hosp L3
[2018-09-12] MEDS: Acetaminophen 325 MG Tablet 650 MG PO (17:32)
--- NOTE | 2018-09-12 17:47 | RAD_ITS ---
STUDY: X-RAY CHEST REASON FOR EXAM: Female, 83 years old. Increasing shortness of breath after surgery yesterday. TECHNIQUE: Single AP portable view of the chest. COMPARISON: September 11, 2018. FINDINGS: Cardiac monitoring leads are present. There is hyperinflation of the lungs consistent with chronic obstructive lung disease (COPD). There are small pleural effusions. There is mild cardiac enlargement. Normal mediastinum and kera. There is prominence of the pulmonary hilar arteries without peripheral pulmonary vascular congestion. There is atherosclerotic calcification of the aortic arch with tortuosity. There is demineralization of the osseous structures. Normal visualized ribs, clavicles, and shoulders. There is no demonstrated abnormality of the visualized soft tissue structures of the upper abdomen. RAD/Chest 1 View (Portable) IMPRESSION: COPD, mild cardiomegaly and small pleural effusions. Electronically Signed: Alena Kaplan MD at 9:19 EDT , Service support ,
--- NOTE | 2018-09-12 18:19 | NURSING ---
care & documentation provided by SN Mojgan, done under the supervision of this RN.
--- NOTE | 2018-09-12 19:45 | EKG12_ITS ---
Test Reason : CP Blood Pressure : / mmHG Vent. Rate : 093 BPM Atrial Rate : 340 BPM P-R Int : 000 ms QRS Dur : 088 ms QT Int : 318 ms P-R-T Axes : 000 -17 173 degrees QTc Int : 395 ms Atrial fibrillation with premature ventricular or aberrantly conducted complexes Nonspecific T wave abnormality Abnormal ECG Confirmed by TAMMIE BERMUDEZ, RAFAL ([id number]), photo editor ESME CRUZ ([id number]) on 09/14/2018 1:11:30 PM Referred By: Leoncio Ag Confirmed By:RAFAL CHO MD
[2018-09-12] MEDS: oxyCODONE 5 MG Tablet PO (19:50)
[2018-09-12] MEDS: Donepezil HCl 5 MG Tablet PO (21:11)
[2018-09-12] MEDS: Furosemide 20 MG/2 ML VIAL IV (21:11)
[2018-09-13] VITALS (18 sets, daily range): BP systolic 106–147; BP diastolic 56–74; PULSE 82–108; RESP 13–18; TEMP 36.3–36.9; O2SAT 87–94
[2018-09-13] MEDS: Ondansetron 4 MG/2 ML Vial IV ×2 (02:32→08:44)
[2018-09-13] MEDS: 0.9% NaCl Peripheral Flush Adult/Peds IV ×3 (02:32→08:44)
[2018-09-13] MEDS: Furosemide 20 MG/2 ML VIAL IV (05:05)
[2018-09-13 06:29] LABS: International Normalized Ratio 2.1; Prothrombin Time (Protime)PT. 23.7 SECONDS (11.7-14.9)
[2018-09-13] MEDS: Ipratropium/Albuterol Sulfate 3 ML AMPUL.NEB INHALATION ×3 (06:38→18:24)
[2018-09-13 06:43] LABS: Anion Gap 8 (5-15); BUN 16 mg/dL (7-18); BUN/Creat Ratio 20.9 RATIO (10-20); Calcium,Total 8.3 mg/dL (8.5-10.1); Chloride 104 mmol/L (98-107); Creatinine, Serum 0.77 mg/dL (0.55-1.02); EST Glomerular Filtration Rate 77 mL/min (>60); Est Glom Filt Rate - Afr Amer 93 mL/min (>60); Glucose 160 mg/dL (74-106); Potassium 2.7 mmol/L (3.5-5.1); Sodium Level 143 mmol/L (136-145)
[2018-09-13 06:48] LABS: Absolute Lymphocyte Count 1.06 X10^3/ul (0.83-4.51); Absolute Neutrophil Count 14.9 X10^3/uL (2.0-7.7); Basophil# 0.01 X10^3/uL; Basophil% 0.1 % (0-1); Eosinophil# 0.01 X10^3/uL; Eosinophils% 0.1 % (0-5); Hematocrit 33.4 % (37-47); Hemoglobin 11.3 g/dl (12.0-15.0); Lymphocyte # 1.06 X10^3/ul (4.0); Lymphocyte % 6.4 % (19-41); Mean Corp Hgb Conc 33.8 g/gl (32-36); Mean Corpuscular Hgb 30.2 pg (27.0-32.0); Mean Corpuscular Volume 89.3 fL (81-99); Mean Platelet Vol. 10.9 fl (6.2-12.0); Monocyte# 0.45 X10^3/uL; Monocyte% 2.7 % (0-10); Neutrophil # 14.92 X10^3/uL (2.7-7.7); Neutrophil % 89.6 % (47-70); Platelet Count 216 K/mm3 (150-450); RBC Distribution Width CV 14.9 % (11.6-14.6); RBC Distribution Width SD 48.5 fl (35.1-43.9); Red Blood Count 3.74 M/mm3 (4.2-5.4); White Blood Count 16.6 K/mm3 (4.4-11.0)
--- NOTE | 2018-09-13 07:00 | PCM.PN.HOSP ---
Patient Problems: Active and Suspected Problems (Last Reviewed 09/11/18 @ 12:43 by Baljinder Dubose MD) UTI (urinary tract infection) (Acute) Ureteral stone (Acute) right Severe sepsis (Acute) Subjective: Patient with no acute events overnight per self and per nursing report however still continues to have hypoxia requiring high level oxygen supplementation although denies any market dyspnea complaints but is having some coughing although not bringing up notable sputum but states that she does feel as though she does have stuff stuck in her lungs. She notes the flank discomfort which she had had prior initially has resolved following stent replacement. Has been present and discussed current status, notes concern for poor oral intake chronically with noted nutrition consultation pending. Patient denies fevers, chills, nausea, emesis, abdominal pain, chest pain. Objective: Physical Examination: General: awake, alert, oriented x [address], year, month, president and cooperative, seated upright in bed, increased RR, some accessory muscle usage, on 8L NC. Skin: normal color, turgor, no icterus, cyanosis. HEENT: AT/NC, EOMI, PERRLA, mildly dry MM. Lungs: Diminished breath sounds throughout, greater bilateral bases, increased respiratory rate, some accessory muscle usage, no rales, ronchi or wheezing. Heart: Regular rate and rhythm; no gallop, rub audible. Abdomen: soft, NTTP, resolved prior flank discomfort, ND, normal BS. Extremities: no cyanosis, clubbing, or edema. Neurological: patient awake, alert, oriented as noted; cognitive function appears improved, nearing baseline intact; pupils equally reactive to light and accomodation; cranial nerves II-XII grossly normal, moving all 4 extremities, no focal deficits, strength moderately to severely global decrease secondary to acute presentation. Psychiatric: affect appears fatigued, no acute evidence of depressive or anxiety feelings. Vitals/I&O's: Vital Signs Temp Pulse Resp BP Pulse Ox 97.8 F 95 18 126/69 H 93 09/13/18 02:44 09/13/18 02:59 09/13/18 02:44 09/13/18 02:44 09/13/18 02:44 Oxygen Flow Rate (L/min) 10 Oxygen Delivery Method Nasal Cannula Weight: 165 lb 2.02 oz Body Mass Index (BMI) 28.2 Intake and Output for Last 24 Hours 09/11/18 09/12/18 09/13/18 23:59 23:59 23:59 Intake Total 2418 482.4 / 482.4 Output Total 0 / 0 575 / 575 300 / 300 Balance 241 / 2418 -92.6 / -92.6 -300 / -300 Microbiology Past 72 Hours 09/11/18 13:10 Urine, Cystoscopy Urine Culture - Preliminary GNR lactose supervisor net making GNR lactose supervisor net making#2 Laboratory Results 09/13/18 05:40: WBC Pending, RBC Pending, Hgb Pending, Hct Pending, MCV Pending, MCH Pending, MCHC Pending, RDW Pending, RDW Differential Pending, Plt Count Pending, Neut % (Auto) Pending, Absolute Neuts (auto) Pending, Total Counted Pending 09/13/18 05:40: Sodium 143, Potassium 2.7 L*, Chloride 104, Carbon Dioxide 31.0, Anion Gap 8, BUN 16, Creatinine 0.77, Estim Creat Clear Calc 38.10, Est GFR (MDRD) Af Amer 93, Est GFR (MDRD) Non-Af 77, BUN/Creatinine Ratio 20.9 H, Glucose 160 H, Calcium 8.3 L 09/13/18 05:40: PT 23.7 H, INR 2.1 Current Medications Acetaminophen (Tylenol) 650 mg PO Q6H PRN PRN PRN Reason: PAIN Last Admin: 09/12/18 17:32 Dose: 650 mg Albuterol/Ipratropium (Duoneb) 3 ml INHALATION Q4HWA.RT [facility] Last Admin: 09/13/18 06:38 Dose: 3 ml Amlodipine Besylate (Norvasc) 10 mg PO DAILY [facility] Last Admin: 09/12/18 09:07 Dose: 10 mg Clonazepam (Klonopin) 0.5 mg PO Q8H PRN PRN PRN Reason: AGITATION Donepezil HCl (Aricept) 5 mg PO QHS [facility] Last Admin: 09/12/18 21:11 Dose: 5 mg Fluoxetine HCl (Prozac) 20 mg PO DAILY PRN PRN PRN Reason: MOOD Furosemide (Lasix) 20 mg IV Q8 [facility] Last Admin: 09/13/18 05:05 Dose: 20 mg Ceftriaxone Sodium 2 gm/ (Sodium Chloride) 50 mls @ 100 mls/hr IV Q24 [facility] Last Admin: 09/12/18 09:06 Dose: 100 mls/hr Levothyroxine Sodium (Synthroid) 50 mcg PO DAILY@0600 [facility] Last Admin: 09/13/18 05:05 Dose: Not Given Metoprolol Tartrate (Lopressor (Beta Lani)) 25 mg PO BID [facility] Last Admin: 09/12/18 21:11 Dose: 25 mg Nutritional Formula (Lactose Free) (Ensure Enlive) 120 ml PO 4X/DAY [facility] Last Admin: 09/12/18 21:11 Dose: 120 ml Ondansetron HCl (Zofran) 4 mg IV Q6H PRN PRN PRN Reason: NAUSEA/VOMITING Last Admin: 09/13/18 02:32 Dose: 4 mg Oxycodone HCl (Oxyir) 5 mg PO Q6H PRN PRN PRN Reason: SEVERE PAIN (6-10/10) Last Admin: 09/12/18 19:50 Dose: 5 mg Potassium [facility] ([facility] Sodium Chloride () 5 - 15 ml IV UD PRN PRN Reason: SALINE FLUSH Last Admin: 09/13/18 05:05 Dose: 10 ml Warfarin Sodium (Coumadin (Pbkc)) 3 mg PO DAILY@1700 [facility] Last Admin: 09/12/18 17:32 Dose: 3 mg Medical Necessity - Tobacco Use Smoking Status: Never smoker Tobacco Use: Non-smoker Assessment/Plan All Active Problems (Last Reviewed 09/11/18 @ 12:43 by Baljinder Dubose MD) UTI (urinary tract infection) (Acute) Ureteral stone (Acute) Severe sepsis (Acute) History of non-ST elevation myocardial infarction (NSTEMI) (Resolved 12/2010) The patient is an 83 y/o F w/ PMHx: CAD s/p PCI, HTN, HLD, Hypothyroidism, History of PE, Chronic Atrial Fibrillation, Suspected CKD, Suspected Chronic Anemia, Anxiety and Depression, Hx Nephrolithiasis who presents to the [facility] as direct admission on 09/11/18 from ED w/ severe sepsis, UTI, obstructive renal stone on their ED evaluation w/ recent onset R flank discomfort, worsening x 2 weeks w/ mild hematuria, dysuria and increased frequency with chills. (1) Acute Severe Sepsis secondary to Acute Complicated E. Coli Pyelonephritis with Hydronephrosis secondary to Acute Obstructive R Ureteral Calculi: Admitted to [place], 09/11/18 OR w/ Dr. Dubose w/ cystoscopy right retrograde pyelogram, right stent placement, admission CBC w/ WBC 18.2 with L shift, continue IV Rocephin w/ transition to oral regimen upon discharge, pansensitive. IVFs held secondary to suspected hypoxia secondary to volume overload. (2) Hypokalemia: Admission K+ 2.7, supplementation given, repeat level in AM. Magnesium pending. (3) Acute kidney injury: Secondary to acute presentation #1. Admission BUN/Cr 24/1.09, prior baseline creatinine noted to be 0.7. Held hydration with volume overload, hold nephrotoxic medications and repeat chemistry in AM. If no improvement would plan FeNa assessment. (4) Acute Hypoxic and Mildly Hypercarbic Respiratory Failure (Increased RR, accessory muscle usage, hypoxia, increased work of breathing), Initially Suspected secondary to Volume Overload, Unclear Specific Etiology: CXR w/ bilateral pleural effusions with mild interstitial prominence, IVFs held, IV lasix administered with transition 09/13/18 back to home oral regimen, repeat CXR with cardiomegaly, small effusions otherwise chronic lung changes but no overt acute cardiopulmonary finding. ECHO 07/28/18 w/ normal LV size, normal LV systolic function, EF 60%, unable to assess diastolic dysfunction secondary to arrhythmia, mildly enlarged LA, mild TVI, pulmonary artery systolic pressure 28 mmHg. Maintain on coumadin, metoprolol, defer statin given age. Therapeutic on coumadin, less suspicion for PE. Worsening status, ABG with pH 7.43, oxygen saturation 91 on 8 L nasal cannula, PCO2 47.3, PO2 61. Requested pulmonary evaluation. (5) Suspected Underlying Dementia, Unclear Type: Unclear behavioral disturbance history, family noting has been giving patient medications, possibly not routinely, suspected underlying dementia, started on Aricept which will be continued upon discharge. (6) Chronic Normocytic Anemia: Admission Hgb 10.2, baseline appears 9-10, stable. (7) CAD: s/p PCI MARYBEL-Mid RCA w 3.0 x 23 mm Promus Stent 12/20/2010, maintain on coumadin w/ INR trending, (8) Chronic Atrial Fibrillation: Continue home metoprolol and coumadin regimen w/ INR trending. ECHO pending. (9) Diabetes mellitus type II: Hold oral home regimen, continue home insulin regimen, ADA diet, accu checks w/ ISS. (10) Hypertension: Continue home regimen including Norvasc, metoprolol, IV Lasix as noted, PRN hydralazine. (11) Hypothyroidism: Continue home synthroid regimen, TSH pending. (12) History of PE: Continue home Coumadin regimen with INR trending. (13) Anxiety and Depression: Continue home Prozac and clonazepam regimen. (14) DVT Prophylaxis: SCDs, coumadin w/ INR trending. Code Visit Inpatient E&M: 19171 Subs Hosp L3
[2018-09-13 07:10] LABS: Bedside Glucose 154 mg/dL (70-110)
[2018-09-13 07:14] LABS: Magnesium 1.8 mg/dL (1.6-2.6); POSITIVE COUNT NO; POSITIVE DIFFERENTIAL NO; POSITIVE MORPHOLOGY NO
--- NOTE | 2018-09-13 07:24 | PN_ITS ---
Patient Problems: Active and Suspected Problems (Last Reviewed 09/11/18 @ 12:43 by Baljinder Dubose MD) UTI (urinary tract infection) (Acute) Ureteral stone (Acute) right Severe sepsis (Acute) Subjective: Patient with no acute events overnight per self and per nursing report however still continues to have hypoxia requiring high level oxygen supplementation although denies any market dyspnea complaints but is having some coughing although not bringing up notable sputum but states that she does feel as though she does have stuff stuck in her lungs. She notes the flank discomfort which she had had prior initially has resolved following stent replacement. Has been present and discussed current status, notes concern for poor oral intake chronically with noted nutrition consultation pending. Patient denies fevers, chills, nausea, emesis, abdominal pain, chest pain. Objective: Physical Examination: General: awake, alert, oriented x [address], year, month, president and cooperative, seated upright in bed, increased RR, some accessory muscle usage, on 8L NC. Skin: normal color, turgor, no icterus, cyanosis. HEENT: AT/NC, EOMI, PERRLA, mildly dry MM. Lungs: Diminished breath sounds throughout, greater bilateral bases, increased respiratory rate, some accessory muscle usage, no rales, ronchi or wheezing. Heart: Regular rate and rhythm; no gallop, rub audible. Abdomen: soft, NTTP, resolved prior flank discomfort, ND, normal BS. Extremities: no cyanosis, clubbing, or edema. Neurological: patient awake, alert, oriented as noted; cognitive function appears improved, nearing baseline intact; pupils equally reactive to light and accomodation; cranial nerves II-XII grossly normal, moving all 4 extremities, no focal deficits, strength moderately to severely global decrease secondary to acute presentation. Psychiatric: affect appears fatigued, no acute evidence of depressive or anxiety feelings. Vitals/I&O's: Vital Signs Temp Pulse Resp BP Pulse Ox 97.8 F 95 18 126/69 H 93 09/13/18 02:44 09/13/18 02:59 09/13/18 02:44 09/13/18 02:44 09/13/18 02:44 Oxygen Flow Rate (L/min) 10 Oxygen Delivery Method Nasal Cannula Weight: 165 lb 2.02 oz Body Mass Index (BMI) 28.2 Intake and Output for Last 24 Hours 09/11/18 09/12/18 09/13/18 23:59 23:59 23:59 Intake Total 2418 482.4 / 482.4 Output Total 0 / 0 575 / 575 300 / 300 Balance 241 / 2418 -92.6 / -92.6 -300 / -300 Microbiology Past 72 Hours 09/11/18 13:10 Urine, Cystoscopy Urine Culture - Preliminary GNR lactose occupational therapy department chair GNR lactose occupational therapy department chair#2 Laboratory Results 09/13/18 05:40: WBC Pending, RBC Pending, Hgb Pending, Hct Pending, MCV Pending, MCH Pending, MCHC Pending, RDW Pending, RDW Differential Pending, Plt Count Pending, Neut % (Auto) Pending, Absolute Neuts (auto) Pending, Total Counted Pending 09/13/18 05:40: Sodium 143, Potassium 2.7 L*, Chloride 104, Carbon Dioxide 31.0, Anion Gap 8, BUN 16, Creatinine 0.77, Estim Creat Clear Calc 38.10, Est GFR (MDRD) Af Amer 93, Est GFR (MDRD) Non-Af 77, BUN/Creatinine Ratio 20.9 H, Glucose 160 H, Calcium 8.3 L 09/13/18 05:40: PT 23.7 H, INR 2.1 Current Medications Acetaminophen (Tylenol) 650 mg PO Q6H PRN PRN PRN Reason: PAIN Last Admin: 09/12/18 17:32 Dose: 650 mg Albuterol/Ipratropium (Duoneb) 3 ml INHALATION Q4HWA.RT [facility] Last Admin: 09/13/18 06:38 Dose: 3 ml Amlodipine Besylate (Norvasc) 10 mg PO DAILY [facility] Last Admin: 09/12/18 09:07 Dose: 10 mg Clonazepam (Klonopin) 0.5 mg PO Q8H PRN PRN PRN Reason: AGITATION Donepezil HCl (Aricept) 5 mg PO QHS [facility] Last Admin: 09/12/18 21:11 Dose: 5 mg Fluoxetine HCl (Prozac) 20 mg PO DAILY PRN PRN PRN Reason: MOOD Furosemide (Lasix) 20 mg IV Q8 [facility] Last Admin: 09/13/18 05:05 Dose: 20 mg Ceftriaxone Sodium 2 gm/ (Sodium Chloride) 50 mls @ 100 mls/hr IV Q24 [facility] Last Admin: 09/12/18 09:06 Dose: 100 mls/hr Levothyroxine Sodium (Synthroid) 50 mcg PO DAILY@0600 [facility] Last Admin: 09/13/18 05:05 Dose: Not Given Metoprolol Tartrate (Lopressor (Beta Lani)) 25 mg PO BID [facility] Last Admin: 09/12/18 21:11 Dose: 25 mg Nutritional Formula (Lactose Free) (Ensure Enlive) 120 ml PO 4X/DAY [facility] Last Admin: 09/12/18 21:11 Dose: 120 ml Ondansetron HCl (Zofran) 4 mg IV Q6H PRN PRN PRN Reason: NAUSEA/VOMITING Last Admin: 09/13/18 02:32 Dose: 4 mg Oxycodone HCl (Oxyir) 5 mg PO Q6H PRN PRN PRN Reason: SEVERE PAIN (6-10/10) Last Admin: 09/12/18 19:50 Dose: 5 mg Potassium [facility] ([facility] Sodium Chloride () 5 - 15 ml IV UD PRN PRN Reason: SALINE FLUSH Last Admin: 09/13/18 05:05 Dose: 10 ml Warfarin Sodium (Coumadin (Pbkc)) 3 mg PO DAILY@1700 [facility] Last Admin: 09/12/18 17:32 Dose: 3 mg Medical Necessity - Tobacco Use Smoking Status: Never smoker Tobacco Use: Non-smoker Assessment/Plan All Active Problems (Last Reviewed 09/11/18 @ 12:43 by Baljinder Dubose MD) UTI (urinary tract infection) (Acute) Ureteral stone (Acute) Severe sepsis (Acute) History of non-ST elevation myocardial infarction (NSTEMI) (Resolved 12/2010) The patient is an 83 y/o F w/ PMHx: CAD s/p PCI, HTN, HLD, Hypothyroidism, History of PE, Chronic Atrial Fibrillation, Suspected CKD, Suspected Chronic Anemia, Anxiety and Depression, Hx Nephrolithiasis who presents to the [facility] as direct admission on 09/11/18 from ED w/ severe sepsis, UTI, obstructive renal stone on their ED evaluation w/ recent onset R flank discomfort, worsening x 2 weeks w/ mild hematuria, dysuria and increased frequency with chills. (1) Acute Severe Sepsis secondary to Acute Complicated E. Coli Pyelonephritis with Hydronephrosis secondary to Acute Obstructive R Ureteral Calculi: Admitted to [place], 09/11/18 OR w/ Dr. Dubose w/ cystoscopy right retrograde pyelogram, right stent placement, admission CBC w/ WBC 18.2 with L shift, continue IV Rocephin w/ transition to oral regimen upon discharge, pansensitive. IVFs held secondary to suspected hypoxia secondary to volume overload. (2) Hypokalemia: Admission K+ 2.7, supplementation given, repeat level in AM. Magnesium pending. (3) Acute kidney injury: Secondary to acute presentation #1. Admission BUN/Cr 24/1.09, prior baseline creatinine noted to be 0.7. Held hydration with volume overload, hold nephrotoxic medications and repeat chemistry in AM. If no im provement would plan FeNa assessment. (4) Acute Hypoxic and Mildly Hypercarbic Respiratory Failure (Increased RR, accessory muscle usage, hypoxia, increased work of breathing), Initially Suspected secondary to Volume Overload, Unclear Specific Etiology: CXR w/ bilateral pleural effusions with mild interstitial prominence, IVFs held, IV lasix administered with transition 09/13/18 back to home oral regimen, repeat CXR with cardiomegaly, small effusions otherwise chronic lung changes but no overt acute cardiopulmonary finding. ECHO 07/28/18 w/ normal LV size, normal LV systolic function, EF 60%, unable to assess diastolic dysfunction secondary to arrhythmia, mildly enlarged LA, mild TVI, pulmonary artery systolic pressure 28 mmHg. Maintain on coumadin, metoprolol, defer statin given age. Therapeutic on coumadin, less suspicion for PE. Worsening status, ABG with pH 7.43, oxygen saturation 91 on 8 L nasal cannula, PCO2 47.3, PO2 61. Requested pulmonary evaluation. (5) Suspected Underlying Dementia, Unclear Type: Unclear behavioral disturbance history, family noting has been giving patient medications, possibly not routinely, suspected underlying dementia, started on Aricept which will be continued upon discharge. (6) Chronic Normocytic Anemia: Admission Hgb 10.2, baseline appears 9-10, stable. (7) CAD: s/p PCI MARYBEL-Mid RCA w 3.0 x 23 mm Promus Stent 12/20/2010, maintain on coumadin w/ INR trending, (8) Chronic Atrial Fibrillation: Continue home metoprolol and coumadin regimen w/ INR trending. ECHO pending. (9) Diabetes mellitus type II: Hold oral home regimen, continue home insulin regimen, ADA diet, accu checks w/ ISS. (10) Hypertension: Continue home regimen including Norvasc, metoprolol, IV Lasix as noted, PRN hydralazine. (11) Hypothyroidism: Continue home synthroid regimen, TSH pending. (12) History of PE: Continue home Coumadin regimen with INR trending. (13) Anxiety and Depression: Continue home Prozac and clonazepam regimen. (14) DVT Prophylaxis: SCDs, coumadin w/ INR trending. Code Visit Inpatient E&M: 18605 Subs Hosp L3
[2018-09-13] MEDS: Acetaminophen 325 MG Tablet 650 MG PO ×2 (08:14→15:39)
[2018-09-13] MEDS: Levothyroxine 50 MCG Tablet PO (08:15)
[2018-09-13] MEDS: Furosemide 20 MG Tablet PO (10:01)
[2018-09-13] MEDS: amLODIPine 10 MG Tablet PO (10:03)
[2018-09-13] MEDS: Metoprolol Tartrate 25 MG Tablet PO ×2 (10:03→21:22)
[2018-09-13 10:16] LABS: Bedside Glucose 152 mg/dL (70-110)
--- NOTE | 2018-09-13 10:20 | CASEMGMT ---
Addendum entered by Brigido Moulton 09/13/18 11:05: Call placed to [facility] @ w/referral for fci, PT/OT. Aware of possible discharge Thursday. Referral packet faxed to them @ , including [facility] order, demographics, insurance copy, H/P, PN, vs's, and labs. Original Note: Addendum entered by Brigido Moulton 09/13/18 11:04: Does not have home O2, nebulizer, or BIPAP/CPAP. Original Note: RN CM BALL MAKER CM to room to meet with patient for initial transition planning/care coordination assessment. RN NYASIA introduced self and role at [facility]. Pt voices understanding and consents to assessment at this time. Pt sitting up in chair in room, no distress at this time. Does have some nausea w/occasionally small emesis. RNRosio, made aware. Pt is A/O at this time and answers all questions appropriately. Care providers, pharmacy, and demographics verified/updated at this time. PCP: [facility] Specialists: Purnima-neuro, Priya-cardiology Preferred Pharmacy: [facility] Insurance: MCR, [employer] Prescription Benefit: Yes Living Will/HPOA: Has both LW and HCPOA, who is her , Mathew. Copy is in paper chart on unit. LNOK: . 3 adult children: Georgina Hollis, Isael Living Arrangements: Lives w/her in one-story home with basement. Washer/dryer on main floor. 4 steps to enter home with rails. Independent with personal ADL's. does grocery shopping, errands, and most health science specialist. Transportation: DME: States has the following DME: cane, standard walker, shower chair, raised toilet seat, rails/grab bars. Pt states no need for further DME at this time. If further DME/O2 needed on discharge, states no preference of DME company. HHC/SNF: Has used HHC agency from [place] in the past but does not want to use this same agency again. States would like to try the agency in [place]/[facility] Care for PT/OT through [employer]. Has been to [facility] in past. Does not Pt wishes to return home and states has no concerns with going home at time of discharge. CM to follow for home oxygen needs and any further discharge planning/needs. Will need home O2 qualification testing prior to d/c. Pt voices no further concerns/needs at this time. Advised pt to ask for CM if any further questions/concerns/needs arise. Voices understanding. PLAN: Home w/spousal support and HHC. May need home O2. Swati NICOLEN RN CM
--- NOTE | 2018-09-13 10:22 | PCM.CONS.GEN ---
Reason for Consult Date of Consultation: 09/13/18 Reason for Consultation: Respiratory failure History of Present Illness: The patient is an 83-year-old female, with a history as outlined below, who initially presented as a direct admission from an outside hospital on September 11 with complaints of right lower quadrant abdominal pain due to a urinary tract source of infection in the setting of a distal right ureteral stone. The patient was evaluated by urology and subsequently taken for a cystoscopy and right stent placement on September 11. Urinary cultures have been positive for E. coli, which is pansensitive. A surface echocardiogram from July 2018 revealed normal LV size and function with an ejection fraction of 60%. The patient's hospital course has been complicated by an increasing supplemental oxygen requirement. Her last plain film chest x-ray revealed evidence of cardiomegaly and small bilateral pleural effusions. The patient does report a prior history of asthma but is currently only prescribed an albuterol metered-dose inhaler to be utilized on a as needed basis. 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 She has a lifelong non-smoker, but does admit to secondhand smoke exposure growing up. She was diagnosed with a pulmonary embolism following a knee replacement surgery in 2010. She is chronically anticoagulated on an outpatient basis with Coumadin. She reports only limited shortness of breath and states that she has a cough but is only been mildly productive of white phlegm. Past Medical History Past Medical History (Chronic Problems): Chronic Problems (Last Reviewed 09/11/18 @ 12:43 by Baljinder Dubose MD) CAD (coronary artery disease) (Chronic) Hyperlipidemia (Chronic) Atherosclerosis of coronary artery of [place] heart without angina pectoris (Chronic) PCI-MARYBEL-Mid RCA w 3.0 x 23 mm Promus Stent 12/20/2010 Essential (primary) hypertension (Chronic) History of coronary artery stent placement (Chronic 12/20/10) PCI-MARYBEL-Mid RCA w 3.0 x 23 mm Promus Stent 12/20/2010 Chronic atrial fibrillation (Chronic) Pulmonary embolism (Chronic) Medical History: Medical History (Last Reviewed 09/11/18 @ 12:43 by Baljinder Dubose MD) History of non-ST elevation myocardial infarction (NSTEMI) (Resolved) Onset Date: 12/2010 I25.2 Hyperlipidemia (Chronic) E78.5 Atherosclerosis of coronary artery of [place] heart without angina pectoris (Chronic) I25.10 PCI-MARYBEL-Mid RCA w 3.0 x 23 mm Promus Stent 12/20/2010 Essential (primary) hypertension (Chronic) I10 Chronic atrial fibrillation (Chronic) I48.2 Pulmonary embolism (Chronic) I26.99 History of nephrolithiasis Z87.442 Hypothyroidism E03.9 Allergies codeine Allergy (Verified 07/14/18 09:33) Chest tightness levofloxacin [From Levaquin] Allergy (Verified 07/14/18 09:33) Unknown Penicillins Allergy (Verified 07/14/18 09:33) Rash Lkktsov-Fbw-Wkw Reductase Inhibitor Allergy (Verified 07/14/18 09:33) myalgias Sulfa (Sulfonamide Antibiotics) Allergy (Verified 07/14/18 09:33) unknown Home Medications: Ambulatory Orders Medication Instructions Recorded Albuterol IH (ProAir) [Proair Hfa 1 - 2 puff INHALATION Q4H PRN PRN 05/17/15 (SP)Vent Pts] Amlodipine [Norvasc] 10 mg PO DAILY 05/17/15 Aspirin [Aspirin, Baby] 81 mg PO DAILY@0800 05/17/15 Levothyroxine [Synthroid] 50 mcg PO DAILY 05/17/15 Warfarin [Coumadin (PBKC)] 3 mg PO DAILY 05/17/15 metoprolol tartrate 25 mg tablet 25 mg PO BID 10/30/17 clonazepam 1 mg tablet 0.5 mg PO BID 07/14/18 Cephalexin [Keflex] 500 mg PO BID 09/11/18 Fluoxetine [Prozac] 20 mg PO DAILY PRN PRN 09/11/18 Furosemide [Lasix] 20 mg PO DAILY 09/11/18 Surgical History: Surgical History (Last Reviewed 09/11/18 @ 12:43 by Baljinder Dubose MD) History of coronary artery stent placement (Chronic) Onset Date: 12/20/10 Z95.5 PCI-MARYBEL-Mid RCA w 3.0 x 23 mm Promus Stent 12/20/2010 History of cataract surgery Z98.49 History of hysterectomy Z90.710 Hx of cholecystectomy Z90.49 Surgical History: cholecystectomy, hysterectomy, knee replacement cyst removal from her left breast Psychiatric History: Depression 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 Lives: Spouse/ Significant Other Smoking Status: Never smoker Tobacco Use: Non-smoker Alcohol: None Drugs: None - *Family History Maternal Family History: Family History (Last Reviewed 07/14/18 @ 10:01 by Srikanth Powers MD) Father CAD (coronary artery disease) Mother CAD (coronary artery disease) Sister Hypertension Brother Cancer History Items: No pertinent history Review of Systems Constitutional: Reports: Weakness, Fatigue Eyes: Denies: Blurred vision, Double vision HEENT: Denies: Head Aches, Sinus Congestion, Sinus Drainage Cardiovascular: Denies: Chest Pain, Palpitations Respiratory: Reports: Cough, Shortness of Breath, Sputum production Gastrointestinal: Denies: Abdominal Pain, Nausea, Vomiting Genitourinary: Denies: Dysuria Musculoskeletal: Denies: Joint Pain, Joint Tenderness Skin: Denies: Rash, Wounds Neurological: Denies: Numbness, Tingling, Focal weakness Psychiatric: Reports: Anxiety Hematologic/ Lymphatic: Reports: Hx of blood clot Patient Problems: Active and Suspected Problems (Last Reviewed 09/11/18 @ 12:43 by Baljinder Dubose MD) UTI (urinary tract infection) (Acute) Ureteral stone (Acute) right Severe sepsis (Acute) Objective: The patient's most recent lab work, culture data and imaging studies have all been personally reviewed. Urine culture was positive for E. coli. - Physical Exam General: Alert, Cooperative, No apparent distress HEENT: Atraumatic, PERRLA, Normocephalic Oral: No Gingival or Mucosal Lesions/ Ulcerations Neck: Supple, No Nodes, Trachea Midline Lungs: No rhonchi, No wheeze, No rales, Diminished, Tachypneic Cardiovascular: Regular rate, Regular Rhythm, Normal S1, Normal S2, No murmurs Abdomen: Bowel Sounds Present, Soft, Non Tender Extremities: No clubbing, No cyanosis, No edema Skin: No breakdown Musculoskeletal: No Tenderness to Palpation of Joints or Extremities, No Muscle Wasting Lymphatic: No Cervical, Supraclavicular, or Inguinal Adenopathy Neurological: Cranial nerves II-XII grossly intact, Neuro grossly intact Psych/Mental Status: Normal Affect, Appropriate Vital Signs Temp Pulse Resp BP Pulse Ox 36.6 C 108 H 16 131/56 H 94 09/13/18 08:05 09/13/18 10:03 09/13/18 10:18 09/13/18 10:03 09/13/18 10:18 Oxygen Flow Rate (L/min) 8 Oxygen Delivery Method Nasal Cannula Weight: 165 lb 2.02 oz Body Mass Index (BMI) 28.2 Intake and Output for Last 24 Hours 09/11/18 09/12/18 09/13/18 23:59 23:59 23:59 Intake Total 2419 / 2419 482.4 / 482.4 Output Total 0 / 0 575 / 575 300 / 300 Balance 2419 / 2419 -92.6 / -92.6 -300 / -300 Microbiology Past 72 Hours 09/11/18 13:10 Urine Culture - Final Urine, Cystoscopy Escherichia coli#2 Escherichia coli Laboratory Tests Past 24 Hrs 09/13/18 09/13/18 09/13/18 05:40 05:40 05:40 WBC 16.6 H RBC 3.74 L Hgb 11.3 L Hct 33.4 L MCV 89.3 MCH 30.2 MCHC 33.8 RDW 14.9 H RDW Differential 48.5 H Plt Count 216 MPV 10.9 Immature Gran % (Auto) 1.100 H Neut % (Auto) 89.6 H Lymph % (Auto) 6.4 L [place] % (Auto) 2.7 Eos % (Auto) 0.1 Baso % (Auto) 0.1 Absolute Neuts (auto) 14.9 H Absolute Lymphs (auto) 1.06 Total Counted Not Reportable PT 23.7 H INR 2.1 Sodium 143 Potassium 2.7 L* Chloride 104 Carbon Dioxide 31.0 Anion Gap 8 BUN 16 Creatinine 0.77 Estim Creat Clear Calc 38.10 Est GFR (MDRD) Af Amer 93 Est GFR (MDRD) Non-Af 77 BUN/Creatinine Ratio 20.9 H Glucose 160 H Calcium 8.3 L Magnesium 09/13/18 05:40 WBC RBC Hgb Hct MCV MCH MCHC RDW RDW Differential Plt Count MPV Immature Gran % (Auto) Neut % (Auto) Lymph % (Auto) [place] % (Auto) Eos % (Auto) Baso % (Auto) Absolute Neuts (auto) Absolute Lymphs (auto) Total Counted PT INR Sodium Potassium Chloride Carbon Dioxide Anion Gap BUN Creatinine Estim Creat Clear Calc Est GFR (MDRD) Af Amer Est GFR (MDRD) Non-Af BUN/Creatinine Ratio Glucose Calcium Magnesium 1.8 POC Glucose 09/13/18 09/13/18 10:08 07:06 POC Glucose 152 H 154 H Clinical Impression(s) from Imaging Studies Chest X-Ray 09/11/18 18:06 IMPRESSION: Smaller and bilateral pleural effusions and mild interstitial prominence. at 0426 Reported and signed by: Isael Rich MD Electronically Signed: Isael Rich, at 4:25 EDT Tel , Service support , Chest X-Ray 09/12/18 17:47 IMPRESSION: COPD, mild cardiomegaly and small pleural effusions. Electronically Signed: Alena Kaplan MD at 9:19 EDT , Service support , Assessment/Plan All Active Problems (Last Reviewed 09/11/18 @ 12:43 by Baljinder Dubose MD) UTI (urinary tract infection) (Acute) Ureteral stone (Acute) Severe sepsis (Acute) History of non-ST elevation myocardial infarction (NSTEMI) (Resolved 12/2010) RECOMMENDATIONS: 1. Recheck BMP, magnesium and BNP. 2. Obtain repeat plain film chest x-ray. 3. Continue to wean supplemental oxygen to maintain saturations at or above 90%. 4. Encourage aggressive incentive spirometer use and mobilize patient as tolerated. 5. Continue Coumadin as ordered. IMPRESSIONS: 1. Acute hypoxemic and hypercarbic respiratory failure While the patient does not routinely have a supplemental oxygen required at her baseline, she is now requiring upwards of 8 L/min to maintain saturations. She does not have a significant history of any underlying lung pathology. Her last plain film chest imaging revealed a mild degree of cardiomegaly and small bilateral pleural effusions. She is currently documented to be overall net +2.5 L here at [facility], but reportedly received a significant amount of supplemental IV fluids at the outside hospital prior to her transfer. She has been therapeutically anticoagulated since her admission, making recurrent PE less likely. She did not have a focal infiltrate previously on chest imaging either. 2. Severe sepsis secondary to E. coli pyelonephritis Continue antibiotics as ordered. 3. Hypokalemia Recheck labs to ensure adequacy of repletion. Check magnesium level as well. 4. Coronary artery disease status post PCI/chronic atrial fibrillation Continue current cardiac regimen. Continue Coumadin and check daily INR levels. 5. Personal history of venous thromboembolic disease/anxiety/depression/hypothyroidism/diabetes/hypertension Complicates care, management, recovery and prognosis. Continue home medications as indicated. This note was generated with [employer] dictation software. It may contain incorrect words, spelling, and punctuation that were not noted in checking the note before signing. Code Visit Inpatient E&M: 69771 Init Hosp L3
--- NOTE | 2018-09-13 10:27 | CON.PCM_ITS ---
Reason for Consult Date of Consultation: 09/13/18 Reason for Consultation: Respiratory failure History of Present Illness: The patient is an 83-year-old female, with a history as outlined below, who initially presented as a direct admission from an outside hospital on September 11 with complaints of right lower quadrant abdominal pain due to a urinary tract source of infection in the setting of a distal right ureteral stone. The patient was evaluated by urology and subsequently taken for a cystoscopy and right stent placement on September 11. Urinary cultures have been positive for E. coli, which is pansensitive. A surface echocardiogram from July 2018 revealed normal LV size and function with an ejection fraction of 60%. The patient's hospital course has been complicated by an increasing supplemental oxygen requirement. Her last plain film chest x-ray revealed evidence of cardiomegaly and small bilateral pleural effusions. The patient does report a prior history of asthma but is currently only prescribed an albuterol metered- dose inhaler to be utilized on a as needed basis. She has never had pulmonary function testing, nor has she ever been evaluated by a support team assoc. She has a lifelong non-smoker, but does admit to secondhand smoke exposure growing up. She was diagnosed with a pulmonary embolism following a knee replacement surgery in 2010. She is chronically anticoagulated on an outpatient basis with Coumadin. She reports only limited shortness of breath and states that she has a cough but is only been mildly productive of white phlegm. Past Medical History Past Medical History (Chronic Problems): Chronic Problems (Last Reviewed 09/11/18 @ 12:43 by Baljinder Dubose MD) CAD (coronary artery disease) (Chronic) Hyperlipidemia (Chronic) Atherosclerosis of coronary artery of [place] heart without angina pectoris (Chronic) PCI-MARYBEL-Mid RCA w 3.0 x 23 mm Promus Stent 12/20/2010 Essential (primary) hypertension (Chronic) History of coronary artery stent placement (Chronic 12/20/10) PCI-MARYBEL-Mid RCA w 3.0 x 23 mm Promus Stent 12/20/2010 Chronic atrial fibrillation (Chronic) Pulmonary embolism (Chronic) Medical History: Medical History (Last Reviewed 09/11/18 @ 12:43 by Baljinder Dubose MD) History of non-ST elevation myocardial infarction (NSTEMI) (Resolved) Onset Date: 12/2010 I25.2 Hyperlipidemia (Chronic) E78.5 Atherosclerosis of coronary artery of [place] heart without angina pectoris (Chronic) I25.10 PCI-MARYBEL-Mid RCA w 3.0 x 23 mm Promus Stent 12/20/2010 Essential (primary) hypertension (Chronic) I10 Chronic atrial fibrillation (Chronic) I48.2 Pulmonary embolism (Chronic) I26.99 History of nephrolithiasis Z87.442 Hypothyroidism E03.9 Allergies codeine Allergy (Verified 07/14/18 09:33) Chest tightness levofloxacin [From Levaquin] Allergy (Verified 07/14/18 09:33) Unknown Penicillins Allergy (Verified 07/14/18 09:33) Rash Scjvvyb-Oag-Tqg Reductase Inhibitor Allergy (Verified 07/14/18 09:33) myalgias Sulfa (Sulfonamide Antibiotics) Allergy (Verified 07/14/18 09:33) unknown Home Medications: Ambulatory Orders Medication Instructions Recorded Albuterol IH (ProAir) [Proair Hfa 1 - 2 puff INHALATION Q4H PRN PRN 05/17/15 (SP)Vent Pts] Amlodipine [Norvasc] 10 mg PO DAILY 05/17/15 Aspirin [Aspirin, Baby] 81 mg PO DAILY@0800 05/17/15 Levothyroxine [Synthroid] 50 mcg PO DAILY 05/17/15 Warfarin [Coumadin (PBKC)] 3 mg PO DAILY 05/17/15 metoprolol tartrate 25 mg tablet 25 mg PO BID 10/30/17 clonazepam 1 mg tablet 0.5 mg PO BID 07/14/18 Cephalexin [Keflex] 500 mg PO BID 09/11/18 Fluoxetine [Prozac] 20 mg PO DAILY PRN PRN 09/11/18 Furosemide [Lasix] 20 mg PO DAILY 09/11/18 Surgical History: Surgical History (Last Reviewed 09/11/18 @ 12:43 by Baljinder Dubose MD) History of coronary artery stent placement (Chronic) Onset Date: 12/20/10 Z95.5 PCI-MARYBEL-Mid RCA w 3.0 x 23 mm Promus Stent 12/20/2010 History of cataract surgery Z98.49 History of hysterectomy Z90.710 Hx of cholecystectomy Z90.49 Surgical History: cholecystectomy, hysterectomy, knee replacement cyst removal from her left breast Psychiatric History: 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 Lives: Spouse/ Significant Other Smoking Status: Never smoker Tobacco Use: Non-smoker Alcohol: None Drugs: None - *Family History Maternal Family History: Family History (Last Reviewed 07/14/18 @ 10:01 by Srikanth Powers MD) Father CAD (coronary artery disease) Mother CAD (coronary artery disease) Sister Hypertension Brother Cancer History Items: No pertinent history Review of Systems Constitutional: Reports: Weakness, Fatigue Eyes: Denies: Blurred vision, Double vision HEENT: Denies: Head Aches, Sinus Congestion, Sinus Drainage Cardiovascular: Denies: Chest Pain, Palpitations Respiratory: Reports: Cough, Shortness of Breath, Sputum production Gastrointestinal: Denies: Abdominal Pain, Nausea, Vomiting Genitourinary: Denies: Dysuria Musculoskeletal: Denies: Joint Pain, Joint Tenderness Skin: Denies: Rash, Wounds Neurological: Denies: Numbness, Tingling, Focal weakness Psychiatric: Reports: Anxiety Hematologic/ Lymphatic: Reports: Hx of blood clot Patient Problems: Active and Suspected Problems (Last Reviewed 09/11/18 @ 12:43 by Baljinder Dubose MD) UTI (urinary tract infection) (Acute) Ureteral stone (Acute) right Severe sepsis (Acute) Objective: The patient's most recent lab work, culture data and imaging studies have all been personally reviewed. Urine culture was positive for E. coli. - Physical Exam General: Alert, Cooperative, No apparent distress HEENT: Atraumatic, PERRLA, Normocephalic Oral: No Gingival or Mucosal Lesions/ Ulcerations Neck: Supple, No Nodes, Trachea Midline Lungs: No rhonchi, No wheeze, No rales, Diminished, Tachypneic Cardiovascular: Regular rate, Regular Rhythm, Normal S1, Normal S2, No murmurs Abdomen: Bowel Sounds Present, Soft, Non Tender Extremities: No clubbing, No cyanosis, No edema Skin: No breakdown Musculoskeletal: No Tenderness to Palpation of Joints or Extremities, No Muscle Wasting Lymphatic: No Cervical, Supraclavicular, or Inguinal Adenopathy Neurological: Cranial nerves II-XII grossly intact, Neuro grossly intact Psych/Mental Status: Normal Affect, Appropriate Vital Signs Temp Pulse Resp BP Pulse Ox 36.6 C 108 H 16 131/56 H 94 09/13/18 08:05 09/13/18 10:03 09/13/18 10:18 09/13/18 10:03 09/13/18 10:18 Oxygen Flow Rate (L/min) 8 Oxygen Delivery Method Nasal Cannula Weight: 165 lb 2.02 oz Body Mass Index (BMI) 28.2 Intake and Output for Last 24 Hours 09/11/18 09/12/18 09/13/18 23:59 23:59 23:59 Intake Total 2419 / 2419 482.4 / 482.4 Output Total 0 / 0 575 / 575 300 / 300 Balance 2419 / 2419 -92.6 / -92.6 -300 / -300 Microbiology Past 72 Hours 09/11/18 13:10 Urine Culture - Final Urine, Cystoscopy Escherichia coli#2 Escherichia coli Laboratory Tests Past 24 Hrs 09/13/18 09/13/18 09/13/18 05:40 05:40 05:40 WBC 16.6 H RBC 3.74 L Hgb 11.3 L Hct 33.4 L MCV 89.3 MCH 30.2 MCHC 33.8 RDW 14.9 H RDW Differential 48.5 H Plt Count 216 MPV 10.9 Immature Gran % (Auto) 1.100 H Neut % (Auto) 89.6 H Lymph % (Auto) 6.4 L [place] % (Auto) 2.7 Eos % (Auto) 0.1 Baso % (Auto) 0.1 Absolute Neuts (auto) 14.9 H Absolute Lymphs (auto) 1.06 Total Counted Not Reportable PT 23.7 H INR 2.1 Sodium 143 Potassium 2.7 L* Chloride 104 Carbon Dioxide 31.0 Anion Gap 8 BUN 16 Creatinine 0.77 Estim Creat Clear Calc 38.10 Est GFR (MDRD) Af Amer 93 Est GFR (MDRD) Non-Af 77 BUN/Creatinine Ratio 20.9 H Glucose 160 H Calcium 8.3 L Magnesium 09/13/18 05:40 WBC RBC Hgb Hct MCV MCH MCHC RDW RDW Differential Plt Count MPV Immature Gran % (Auto) Neut % (Auto) Lymph % (Auto) [place] % (Auto) Eos % (Auto) Baso % (Auto) Absolute Neuts (auto) Absolute Lymphs (auto) Total Counted PT INR Sodium Potassium Chloride Carbon Dioxide Anion Gap BUN Creatinine Estim Creat Clear Calc Est GFR (MDRD) Af Amer Est GFR (MDRD) Non-Af BUN/Creatinine Ratio Glucose Calcium Magnesium 1.8 POC Glucose 09/13/18 09/13/18 10:08 07:06 POC Glucose 152 H 154 H Clinical Impression(s) from Imaging Studies Chest X-Ray 09/11/18 18:06 IMPRESSION: Smaller and bilateral pleural effusions and mild interstitial prominence. at 0426 Reported and signed by: Isael Rich MD Electronically Signed: Isael Rich, at 4:25 EDT Tel , Service support , Chest X-Ray 09/12/18 17:47 IMPRESSION: COPD, mild cardiomegaly and small pleural effusions. Electronically Signed: Alena Kaplan MD at 9:19 EDT , Service support , Assessment/Plan All Active Problems (Last Reviewed 09/11/18 @ 12:43 by Baljinder Dubose MD) UTI (urinary tract infection) (Acute) Ureteral stone (Acute) Severe sepsis (Acute) History of non-ST elevation myocardial infarction (NSTEMI) (Resolved 12/2010) RECOMMENDATIONS: 1. Recheck BMP, magnesium and BNP. 2. Obtain repeat plain film chest x-ray. 3. Continue to wean supplemental oxygen to maintain saturations at or above 90%. 4. Encourage aggressive incentive spirometer use and mobilize patient as tolerated. 5. Continue Coumadin as ordered. IMPRESSIONS: 1. Acute hypoxemic and hypercarbic respiratory failure While the patient does not routinely have a supplemental oxygen required at her baseline, she is now requiring upwards of 8 L/min to maintain saturations. She does not have a significant history of any underlying lung pathology. Her last plain film chest imaging revealed a mild degree of cardiomegaly and small bilateral pleural effusions. She is currently documented to be overall net +2.5 L here at [facility], but reportedly received a significant amount of supplemental IV fluids at the outside hospital prior to her transfer. She has been therapeutically anticoagulated since her admission, making recurrent PE less likely. She did not have a focal infiltrate previously on chest imaging either. 2. Severe sepsis secondary to E. coli pyelonephritis Continue antibiotics as ordered. 3. Hypokalemia Recheck labs to ensure adequacy of repletion. Check magnesium level as well. 4. Coronary artery disease status post PCI/chronic atrial fibrillation Continue current cardiac regimen. Continue Coumadin and check daily INR levels. 5. Personal history of venous thromboembolic disease/anxiety/depression/hypothyroidism/diabetes/hypertension Complicates care, management, recovery and prognosis. Continue home medications as indicated. This note was generated with [email or web address] dictation software. It may contain incorrect words, spelling, and punctuation that were not noted in checking the note before signing. Code Visit Inpatient E&M: 51152 Init Hosp L3
[2018-09-13 11:05] LABS: Base Excess 7 mmol/L (-2 to +2); Bicarbonate 31.3 mmol/L (22-26); Blood Gas Specimen Type ART; O2 Delivery Device Nasal Can; PO2 61 mmHG (75-100); SITE R Brachial; SO2 91 % (95-99); Time Given 1110; Total Carbon Dioxide 33 mmol/L; pCO2 47.3 mmHg (35-45); pH 7.43 (7.35-7.45)
[2018-09-13 17:56] LABS: Bedside Glucose 200 mg/dL (70-110)
[2018-09-13] MEDS: Insulin Lispro 100 UNIT/ML INSULN.PEN SC ×2 (18:29→21:22)
[2018-09-13] MEDS: oxyCODONE 5 MG Tablet PO (19:09)
[2018-09-13] MEDS: Donepezil HCl 5 MG Tablet PO (21:21)
[2018-09-13 21:46] LABS: Bedside Glucose 156 mg/dL (70-110)
[2018-09-14] VITALS (17 sets, daily range): BP systolic 125–138; BP diastolic 60–79; PULSE 78–99; RESP 17–18; TEMP 36.6–36.8; O2SAT 92–95
[2018-09-14] MEDS: 0.9% NaCl Peripheral Flush Adult/Peds IV ×3 (01:36→15:44)
[2018-09-14] MEDS: Ondansetron 4 MG/2 ML Vial IV (01:36)
[2018-09-14] MEDS: Acetaminophen 325 MG Tablet 650 MG PO (04:45)
[2018-09-14] MEDS: Levothyroxine 50 MCG Tablet PO (05:21)
--- NOTE | 2018-09-14 06:23 | RAD_ITS ---
STUDY: X-RAY CHEST REASON FOR EXAM: Female, 83 years old. Shortness of breath/dyspnea. TECHNIQUE: Single AP portable view of the chest. COMPARISON: Comparison is made with prior study dated September 12, 2018. FINDINGS: EKG electrodes are seen. Stable blunting of both costophrenic angles slightly more prominent on the left side. Stable mild increased markings at the lung bases suggesting bibasilar atelectasis as well as in the upper lobes. Findings are suggestive mild degree of vascular congestion. There is mild cardiac enlargement. Normal mediastinum and kera. Normal visualized pulmonary arteries. There is atherosclerotic calcification of the aortic arch with tortuosity. Normal visualized thoracic spine. Normal visualized ribs, clavicles, and shoulders. There is no demonstrated abnormality of the visualized soft tissue structures of the upper abdomen. RAD/Chest 1 View (Portable) IMPRESSION: Blunting of both costophrenic angles slightly worse on the left side with vascular congestion and mild bibasilar atelectasis worse on the left side. Electronically Signed: Huseyin Bryant, at 10:10 EDT , Service support ,
[2018-09-14] MEDS: oxyCODONE 5 MG Tablet PO ×2 (06:39→17:06)
[2018-09-14] MEDS: Ipratropium/Albuterol Sulfate 3 ML AMPUL.NEB INHALATION ×4 (06:44→19:11)
[2018-09-14 07:01] LABS: Bedside Glucose 151 mg/dL (70-110)
--- NOTE | 2018-09-14 07:22 | PN_ITS ---
Patient Problems: Active and Suspected Problems (Last Reviewed 09/11/18 @ 12:43 by Baljinder Dubose MD) UTI (urinary tract infection) (Acute) Ureteral stone (Acute) right Severe sepsis (Acute) Subjective: Patient notes feeling mildly improved from day prior. She notes walking in the [place] and only mild dyspnea. No coughing still. She has never noted marked dyspnea. She is eager for discharge. She remains on elevated NC needs. Patient noted continued resolution of prior flank discomfort and dysuria. Discussed plan of care with patient and family and amenable to CT noncontrast of chest given unclear etiology. Patient denies fevers, chills, nausea, emesis, abdominal pain, chest pain or worsening or marketed dyspnea. Objective: Physical Examination: General: awake, alert, oriented x 4, seated upright in a bedside chair, more comfortable than day prior, respiratory rate has normalized, still requiring increased nasal cannula supplementation but no overt respiratory distress. Skin: normal color, turgor, no icterus, cyanosis. HEENT: AT/NC, EOMI, PERRLA, improved MMM. Lungs: Diminished breath sounds, > bases, BL, comfortable appearing, respiratory rate normalized, not using accessory muscle usage, very minimal possible rales bases, no rhonchi or wheezing currently noted. Heart: Regular rate and rhythm; no gallop, rub audible. Abdomen: soft, NTTP, resolved prior flank discomfort, ND, normal BS. Extremities: no cyanosis, clubbing, or edema. Neurological: patient awake, alert, oriented as noted; cognitive function appears improved, nearing baseline intact; pupils equally reactive to light and accomodation; cranial nerves II-XII grossly normal, moving all 4 extremities, no focal deficits, strength moderately to severely global decrease secondary to acute presentation. Psychiatric: affect appears normal, no acute evidence of depressive or anxiety feelings. Vitals/I&O's: Vital Signs Temp Pulse Resp BP Pulse Ox 97.8 F 90 18 128/75 H 93 09/14/18 03:20 09/14/18 03:20 09/14/18 03:20 09/14/18 03:20 09/14/18 03:20 Oxygen Flow Rate (L/min) 10 Oxygen Delivery Method Nasal Cannula Weight: 165 lb 2.02 oz Body Mass Index (BMI) 28.2 Intake and Output for Last 24 Hours 09/12/18 09/13/18 09/14/18 23:59 23:59 23:59 Intake Total 482.4 / 482.4 537 / 537 Output Total 575 / 575 300 / 300 Balance -92.6 / -92.6 237 / 237 Microbiology Past 72 Hours 09/11/18 13:10 Urine, Cystoscopy Urine Culture - Final Escherichia coli#2 Escherichia coli Laboratory Results 09/13/18 10:08: POC Glucose 152 H 09/13/18 11:03: Specimen Type ART, Sample Site R Brachial, pH 7.43, Bicarbonate Actual 31.3 H, POC Total CO2 33, Base Excess 7 H, O2 Saturation 91 L, ABG pCO2 47.3 H, ABG pO2 61 L, Robert Test NA, O2 Delivery Device Nasal Can, Liter Flow 8.0, Blood Gas Notified Whom [facility] , Blood Gas Notified Time 1110 09/13/18 17:50: POC Glucose 200 H 09/13/18 21:19: POC Glucose 156 H 09/14/18 06:37: POC Glucose 151 H Current Medications Acetaminophen (Tylenol) 650 mg PO Q6H PRN PRN PRN Reason: PAIN Last Admin: 09/14/18 04:45 Dose: 650 mg Albuterol/Ipratropium (Duoneb) 3 ml INHALATION Q4HWA.RT [facility] Last Admin: 09/14/18 06:44 Dose: 3 ml Amlodipine Besylate (Norvasc) 10 mg PO DAILY [facility] Last Admin: 09/13/18 10:03 Dose: 10 mg Clonazepam (Klonopin) 0.5 mg PO Q8H PRN PRN PRN Reason: AGITATION Donepezil HCl (Aricept) 5 mg PO QHS [facility] Last Admin: 09/13/18 21:21 Dose: 5 mg Fluoxetine HCl (Prozac) 20 mg PO DAILY PRN PRN PRN Reason: MOOD Furosemide (Lasix) 20 mg PO DAILY [facility] Last Admin: 09/13/18 10:01 Dose: 20 mg Ceftriaxone Sodium 2 gm/ (Sodium Chloride) 50 mls @ 100 mls/hr IV Q24 [facility] Last Admin: 09/13/18 10:13 Dose: 100 mls/hr Insulin Human Lispro (Humalog Kwikpen (Bkc)) 0 unit SC ACHS [facility]; Protocol Last Admin: 09/13/18 21:22 Dose: 1 units Levothyroxine Sodium (Synthroid) 50 mcg PO DAILY@0600 [facility] Last Admin: 09/14/18 05:21 Dose: 50 mcg Metoprolol Tartrate (Lopressor (Beta Lani)) 25 mg PO BID [facility] Last Admin: 09/13/18 21:22 Dose: 25 mg Nutritional Formula (Lactose Free) (Ensure Enlive) 120 ml PO 4X/DAY [facility] Last Admin: 09/13/18 21:22 Dose: Not Given Ondansetron HCl (Zofran) 4 mg IV Q6H PRN PRN PRN Reason: NAUSEA/VOMITING Last Admin: 09/14/18 01:36 Dose: 4 mg Oxycodone HCl (Oxyir) 5 mg PO Q6H PRN PRN PRN Reason: SEVERE PAIN (6-10/10) Last Admin: 09/14/18 06:39 Dose: 5 mg Potassium [facility] ([facility]-Dur) [facility] Last Admin: 09/13/18 17:43 Dose: 20 meq Sodium Chloride () 5 - 15 ml IV UD PRN PRN Reason: SALINE FLUSH Last Admin: 09/14/18 01:36 Dose: 10 ml Warfarin Sodium (Coumadin (Pbkc)) 3 mg PO DAILY@1700 [facility] Last Admin: 09/13/18 17:44 Dose: 3 mg Medical Necessity - Tobacco Use Smoking Status: Never smoker Tobacco Use: Non-smoker Assessment/Plan All Active Problems (Last Reviewed 09/11/18 @ 12:43 by Baljinder Dubose MD) UTI (urinary tract infection) (Acute) Ureteral stone (Acute) Severe sepsis (Acute) History of non-ST elevation myocardial infarction (NSTEMI) (Resolved 12/2010) The patient is an 83 y/o F w/ PMHx: CAD s/p PCI, HTN, HLD, Hypothyroidism, History of PE, Chronic Atrial Fibrillation, Suspected CKD, Suspected Chronic Anemia, Anxiety and Depression, Hx Nephrolithiasis who presents to the [facility] as direct admission on 09/11/18 from ED w/ severe sepsis, UTI, obstructive renal stone on their ED evaluation w/ recent onset R flank discomfort, worsening x 2 weeks w/ mild hematuria, dysuria and increased frequency with chills. (1) Acute Severe Sepsis secondary to Acute Complicated E. Coli Pyelonephritis with Hydronephrosis secondary to Acute Obstructive R Ureteral Calculi: Admitted to [place], 09/11/18 OR w/ Dr. Dubose w/ cystoscopy right retrograde pyelogram, right stent placement, admission CBC w/ WBC 18.2 with L shift, IV rocephin-> transitioned to IV levaquin given allergy history and BSA needs w/ #2. IVFs held secondary to suspected hypoxia secondary to initially volume overload. Once patient clinically appropriate falling evaluation and treatment for #2, planned follow-up outpatient with urology for stent removal. (2) Acute Hypoxic and Mildly Hypercarbic Respiratory Failure (Increased RR, accessory muscle usage, hypoxia, increased work of breathing), Initially Carlos spected secondary to Volume Overload, however, possible CAP: CXR w/ bilateral pleural effusions with mild interstitial prominence, IVFs held, IV lasix administered with transition 09/13/18 back to home oral regimen, repeat CXR with cardiomegaly, small effusions otherwise chronic lung changes but no overt acute cardiopulmonary finding. ECHO 07/28/18 w/ normal LV size, normal LV systolic function, EF 60%, unable to assess diastolic dysfunction secondary to arrhythmia, mildly enlarged LA, mild TVI, pulmonary artery systolic pressure 28 mmHg. Maintained on coumadin w/ therapeutic INR thus PE less likely, maintained on metoprolol, deferws statin given age. 09/13/18 worsening status, ABG with pH 7.43, oxygen saturation 91 on 8 L nasal cannula, PCO2 47.3, PO2 61. Requested pulmonary evaluation. Improved appearance 09/15/18, still 10L NC supplementation. 09/14/18 repeat AM CXR w/ blunting of the costophrenic angles left greater than right with appearance of possible vascular congestion and mild bibasilar atelectasis worse on the left. CT Chest obtained w/ small bilateral pleural effusions with bibasilar atelectasis and/or infiltrates, patchy atelectasis and/or infiltrates seen along the posterior aspect of both upper lobes with no significant CHF demonstrated. She is antibiotic therapy following discussion with pulmonary medicine transition from IV Rocephin to IV Levaquin with MRSA swab assessment and addition of vancomycin if positive. (3) Hypokalemia: Admission K+ 2.7, supplementation given, repeat level in AM 3.3, additional supplementation administered. Mag 2.2. (4) Acute kidney injury: Secondary to acute presentation #1. Admission BUN/Cr 24/1.09, prior baseline creatinine noted to be 0.7. Held hydration with volume overload, held nephrotoxic medications. 09/14/18 BUN/Cr 16/0.61. (5) Suspected Underlying Dementia, Unclear Type: Unclear behavioral disturbance history, family noting has been giving patient medications, possibly not routinely, suspected underlying dementia, started on Aricept which will be continued upon discharge. Additionally requested case management assist with possible family need for pre-packaged medications to assure better compliance and avoid incorrect usage. (6) Chronic Normocytic Anemia: Admission Hgb 10.2, baseline appears 9-10, 09/14/18 Hgb 11.7, stable. (7) CAD: s/p PCI MARYBEL-Mid RCA w 3.0 x 23 mm Promus Stent 12/20/2010, maintain on coumadin w/ INR trending. (8) Chronic Atrial Fibrillation: Continue home metoprolol and coumadin regimen w/ INR trending. ECHO 07/28/18 w/ normal LV size, normal LV systolic function, EF 60%, unable to assess diastolic dysfunction secondary to arrhythmia, mildly enlarged LA, mild TVI, pulmonary artery systolic pressure 28 mmHg. Maintained on coumadin w/ therapeutic INR thus PE less likely, maintained on metoprolol, deferws statin given age. (9) Diabetes mellitus type II: Hold oral home regimen, continue home insulin regimen, ADA diet, accu checks w/ ISS. (10) Hypertension: Continue home regimen including Norvasc, metoprolol, IV Lasix as noted transiently, PRN hydralazine. (11) Hypothyroidism: Continue home synthroid regimen, TSH normal. (12) History of PE: Continue home Coumadin regimen with INR trending. (13) Anxiety and Depression: Continue home Prozac and clonazepam regimen. (14) DVT Prophylaxis: SCDs, coumadin w/ INR trending. Code Visit Inpatient E&M: 66546 Subs Hosp L2
--- NOTE | 2018-09-14 07:28 | PCM.PROGNOTE ---
Patient Problems: Active and Suspected Problems (Last Reviewed 09/11/18 @ 12:43 by Baljinder Dubose MD) UTI (urinary tract infection) (Acute) Ureteral stone (Acute) right Severe sepsis (Acute) Subjective: The patient was seen and examined at the bedside this morning. Events from the last 24 hours have been reviewed. The patient is currently afebrile, hemodynamically stable and maintaining appropriate oxygen saturations on 10 L/min via nasal cannula. Morning labs have still not been reported. The patient is currently resting comfortably in bed with family present at the bedside. Objective: The patient's most recent lab work, culture data and imaging studies have all been personally reviewed. Surface echocardiogram from July 2018 revealed normal LV size and function with an ejection fraction of 60%. Pulmonary artery systolic pressure was estimated to be 28 mmHg. Urine culture was positive for pansensitive E. coli. - Physical Exam General: Alert, Cooperative, No apparent distress HEENT: Atraumatic, PERRLA, Normocephalic Oral: Moist Mucosa, No Gingival or Mucosal Lesions/ Ulcerations Neck: Supple, No Nodes, Trachea Midline Lungs: - - Relatively preserved air movement throughout all lung oakley without appreciable wheezes, rales or rhonchi. Cardiovascular: Regular rate, Regular Rhythm, Normal S1, Normal S2, No murmurs Abdomen: Bowel Sounds Present, Soft, Non Tender Extremities: No clubbing, No cyanosis, No edema Skin: No breakdown Musculoskeletal: No Tenderness to Palpation of Joints or Extremities, No Muscle Wasting Lymphatic: No Cervical, Supraclavicular, or Inguinal Adenopathy Neurological: Cranial nerves II-XII grossly intact, Neuro grossly intact Psych/Mental Status: Alert and oriented to time, place, person, mood and affect Vital Signs Temp Pulse Resp BP Pulse Ox 36.6 C 90 18 128/75 H 93 09/14/18 03:20 09/14/18 03:20 09/14/18 03:20 09/14/18 03:20 09/14/18 03:20 Oxygen Flow Rate (L/min) 10 Oxygen Delivery Method Nasal Cannula Weight: 165 lb 2.02 oz Body Mass Index (BMI) 28.2 Intake and Output for Last 24 Hours 09/12/18 09/13/18 09/14/18 23:59 23:59 23:59 Intake Total 482.4 / 482.4 537 / 537 Output Total 575 / 575 300 / 300 Balance -92.6 / -92.6 237 / 237 Microbiology Past 72 Hours 09/11/18 13:10 Urine Culture - Final Urine, Cystoscopy Escherichia coli#2 Escherichia coli Laboratory Tests Past 24 Hrs 09/13/18 11:03 Specimen Type ART Sample Site R Brachial pH 7.43 Bicarbonate Actual 31.3 H POC Total CO2 33 Base Excess 7 H O2 Saturation 91 L ABG pCO2 47.3 H ABG pO2 61 L Robert Test NA O2 Delivery Device Nasal Can Liter Flow 8.0 Blood Gas Notified Whom [facility] Blood Gas Notified Time 1110 POC Glucose 09/14/18 09/13/18 09/13/18 06:37 21:19 17:50 POC Glucose 151 H 156 H 200 H 09/13/18 10:08 POC Glucose 152 H Clinical Impression(s) from Imaging Studies Chest X-Ray 09/11/18 18:06 IMPRESSION: Smaller and bilateral pleural effusions and mild interstitial prominence. at 0426 Reported and signed by: Isael Rich MD Electronically Signed: Isael Rich, at 4:25 EDT Tel , Service support , Chest X-Ray 09/12/18 17:47 IMPRESSION: COPD, mild cardiomegaly and small pleural effusions. Electronically Signed: Alena Kaplan MD at 9:19 EDT , Service support , Medical Necessity - Tobacco Use Smoking Status: Never smoker Tobacco Use: Non-smoker Assessment/Plan All Active Problems (Last Reviewed 09/11/18 @ 12:43 by Baljinder Dubose MD) UTI (urinary tract infection) (Acute) Ureteral stone (Acute) Severe sepsis (Acute) History of non-ST elevation myocardial infarction (NSTEMI) (Resolved 12/2010) RECOMMENDATIONS: 1. Await morning lab results along with plain film chest x-ray. 2. May need to consider dose escalation in Lasix. 3. Consider obtaining repeat echocardiogram. 4. Continue to wean supplemental oxygen to maintain saturations at or above 90%. 5. Encourage incentive spirometer use and mobilize patient as tolerated. IMPRESSIONS: 1. Acute hypoxemic and hypercarbic respiratory failure While the patient does not routinely have a supplemental oxygen required at her baseline, she is now requiring upwards of 8 L/min to maintain saturations. She does not have a significant history of any underlying lung pathology. Her last plain film chest imaging revealed a mild degree of cardiomegaly and small bilateral pleural effusions. She is currently documented to be overall net positive here at [facility], but reportedly received a significant amount of supplemental IV fluids at the outside hospital prior to her transfer. She has been therapeutically anticoagulated since her admission, making recurrent PE less likely. She did not have a focal infiltrate previously on chest imaging either. 2. Severe sepsis secondary to E. coli pyelonephritis Continue antibiotics as ordered. 3. Hypokalemia Recheck labs to ensure adequacy of repletion. Check magnesium level as well. 4. Coronary artery disease status post PCI/chronic atrial fibrillation Continue current cardiac regimen. Continue Coumadin and check daily INR levels. 5. Personal history of venous thromboembolic disease/anxiety/depression/hypothyroidism/diabetes/hypertension Complicates care, management, recovery and prognosis. Continue home medications as indicated. This note was generated with [employer] dictation software. It may contain incorrect words, spelling, and punctuation that were not noted in checking the note before signing. Code Visit Inpatient E&M: 15504 Subs Hosp L2
[2018-09-14] MEDS: Insulin Lispro 100 UNIT/ML INSULN.PEN SC ×4 (08:10→21:15)
[2018-09-14 08:15] LABS: Absolute Lymphocyte Count 1.56 X10^3/ul (0.83-4.51); Absolute Neutrophil Count 11.6 X10^3/uL (2.0-7.7); Basophil# 0.01 X10^3/uL; Basophil% 0.1 % (0-1); Eosinophil# 0.02 X10^3/uL; Eosinophils% 0.1 % (0-5); Hematocrit 34.8 % (37-47); Hemoglobin 11.7 g/dl (12.0-15.0); Lymphocyte # 1.56 X10^3/ul (4.0); Lymphocyte % 11.4 % (19-41); Mean Corp Hgb Conc 33.6 g/gl (32-36); Mean Corpuscular Hgb 30.2 pg (27.0-32.0); Mean Corpuscular Volume 89.7 fL (81-99); Mean Platelet Vol. 10.5 fl (6.2-12.0); Monocyte# 0.54 X10^3/uL; Monocyte% 3.9 % (0-10); Neutrophil # 11.55 X10^3/uL (2.7-7.7); Neutrophil % 84.2 % (47-70); Platelet Count 247 K/mm3 (150-450); RBC Distribution Width CV 14.6 % (11.6-14.6); RBC Distribution Width SD 47.7 fl (35.1-43.9); Red Blood Count 3.88 M/mm3 (4.2-5.4); White Blood Count 13.7 K/mm3 (4.4-11.0)
[2018-09-14 08:16] LABS: POSITIVE COUNT NO; POSITIVE DIFFERENTIAL NO; POSITIVE MORPHOLOGY NO
--- NOTE | 2018-09-14 08:17 | PCM.CONS.B ---
Problem List (1) Ureteral stone Status: Acute Comment: right - Consult Date of Consult: 09/14/18 83-year-old female status post placement of a stent in the right kidney for an obstructing proximal ureteral calculus. Clinically she is stable but she still requires a high level of oxygen. Is on nasal cannula. Denies any shortness of breath. Pulmonology is been consulted.. Discussed with the patient that she still has a stent and she still has a stone that once she is discharged in the hospital need to see her in the office for evaluation and then once she is stable we will plan to do lithotripsy for the stone but for now given her oxygen requirements etc. get a hold off on any procedures and until she is fully recovered from her sepsis and her oxygenation is much better. She should call my office for an appointment on discharge if you have any questions or concerns please let me know.
[2018-09-14 08:22] LABS: International Normalized Ratio 2.3; Prothrombin Time (Protime)PT. 25.2 SECONDS (11.7-14.9)
[2018-09-14 08:26] LABS: Anion Gap 5 (5-15); BUN 16 mg/dL (7-18); BUN/Creat Ratio 26.2 RATIO (10-20); Calcium,Total 8.3 mg/dL (8.5-10.1); Chloride 104 mmol/L (98-107); Creatinine, Serum 0.61 mg/dL (0.55-1.02); EST Glomerular Filtration Rate 100 mL/min (>60); Est Glom Filt Rate - Afr Amer 121 mL/min (>60); Glucose 167 mg/dL (74-106); Magnesium 2.2 mg/dL (1.6-2.6); Potassium 3.3 mmol/L (3.5-5.1); Sodium Level 140 mmol/L (136-145)
[2018-09-14] MEDS: Furosemide 20 MG Tablet PO (09:42)
[2018-09-14] MEDS: Metoprolol Tartrate 25 MG Tablet PO ×2 (09:42→21:22)
[2018-09-14] MEDS: amLODIPine 10 MG Tablet PO (09:42)
[2018-09-14 10:23] LABS: BNP,B-Type NATRIURETIC PEPTIDE 387.8 pg/mL (0-100)
--- NOTE | 2018-09-14 10:40 | CT_ITS ---
STUDY: CT CHEST WITHOUT CONTRAST REASON FOR EXAM: Female, 83 years old. Cough. Atrial fibrillation. RADIATION DOSAGE (If Supplied By Facility): CTDIvol = ( 12.59 ) mGy, DLP = ( 446.83 ) mGycm TECHNIQUE: Transaxial imaging was performed without the administration of intravenous contrast material. Multiplanar coronal and sagittal images were reformatted. Individualized dose optimization techniques were used for this CT. COMPARISON: None. FINDINGS: Small bilateral pleural effusions slightly greater on the right side with bibasilar atelectasis and/or infiltrates. Focal erosive atelectasis and/or infiltrate also seen in the posterior aspects of the upper lobes bilaterally. No significant CHF is seen. Follow-up is recommended. There is no demonstrated pleural abnormality. There are calcifications of the coronary arteries. Enlarged left atrium. There are multiple small lymph nodes within the mediastinum, which are normal in size and morphology most compatible with reactive lymph hyperplasia. Normal hilar regions. Normal unenhanced pulmonary arteries. There is atherosclerotic calcification of the aortic arch with tortuosity and elongation of the aortic arch and descending thoracic aorta. There are multi-level degenerative changes of the thoracic spine. Moderate sized hiatal hernia. CT/Chest without Contrast IMPRESSION: Small bilateral pleural effusions with bibasilar atelectasis and/or infiltrates. Patchy atelectasis and/or infiltrates also seen along the posterior aspect of both upper lobes. No significant CHF is seen. Electronically Signed: Huseyin rByant, at 13:12 EDT , Service support ,
--- NOTE | 2018-09-14 11:33 | CASEMGMT ---
This RN [place] spoke with pt and family and they do not want [facility] at this time. [facility] could take pt for just RN but not if pt needs therapy. CM to follow with pt/family in regards to OP vs HHC at discharge. Pt is still on 10 liters NC at this time. CM to follow for home oxygen qualification as well. Call to [facility] and asked them to retract the referral sent previously by Rose NIETO CM at this time, voice understanding. Maci NIETO CM
[2018-09-14] MEDS: Furosemide 40 MG/4 ML Vial IV ×2 (12:58→19:06)
[2018-09-14 13:00] LABS: Bedside Glucose 233 mg/dL (70-110)
[2018-09-14] MEDS: levoFLOXacin IV 750 MG/150 ML BAG 100 MG IV (15:44)
[2018-09-14 17:03] LABS: M R Staph aureus DNA By PCR Negative (Negative); Probe Check PASS; Specimen Processing Control PASS
[2018-09-14 17:05] LABS: Bedside Glucose 160 mg/dL (70-110)
[2018-09-14] MEDS: Donepezil HCl 5 MG Tablet PO (21:16)
[2018-09-14 22:06] LABS: Bedside Glucose 173 mg/dL (70-110)
[2018-09-15] VITALS (10 sets, daily range): BP systolic 125–136; BP diastolic 60–82; PULSE 87–101; RESP 14–18; TEMP 36.2–36.6; O2SAT 87–99
[2018-09-15] MEDS: 0.9% NaCl Peripheral Flush Adult/Peds IV ×2 (00:01→06:30)
[2018-09-15] MEDS: Ondansetron 4 MG/2 ML Vial IV ×2 (00:01→06:30)
[2018-09-15] MEDS: Acetaminophen 325 MG Tablet 650 MG PO (03:49)
[2018-09-15 05:26] LABS: Absolute Lymphocyte Count 1.53 X10^3/ul (0.83-4.51); Absolute Neutrophil Count 6.7 X10^3/uL (2.0-7.7); Basophil# 0.01 X10^3/uL; Basophil% 0.1 % (0-1); Eosinophil# 0.02 X10^3/uL; Eosinophils% 0.2 % (0-5); Hematocrit 37.7 % (37-47); Hemoglobin 12.1 g/dl (12.0-15.0); Lymphocyte # 1.53 X10^3/ul (4.0); Lymphocyte % 16.5 % (19-41); Mean Corp Hgb Conc 32.1 g/gl (32-36); Mean Corpuscular Hgb 29.4 pg (27.0-32.0); Mean Corpuscular Volume 91.7 fL (81-99); Mean Platelet Vol. 10.5 fl (6.2-12.0); Monocyte# 0.81 X10^3/uL; Monocyte% 8.7 % (0-10); Neutrophil # 6.72 X10^3/uL (2.7-7.7); Neutrophil % 72.7 % (47-70); Platelet Count 266 K/mm3 (150-450); Red Blood Count 4.11 M/mm3 (4.2-5.4); White Blood Count 9.3 K/mm3 (4.4-11.0)
[2018-09-15 05:28] LABS: International Normalized Ratio 2.5; Prothrombin Time (Protime)PT. 27.2 SECONDS (11.7-14.9)
[2018-09-15 05:32] LABS: Differential Indicated SCAN CRITERIA MET; POSITIVE COUNT NO; POSITIVE DIFFERENTIAL NO; POSITIVE MORPHOLOGY YES
[2018-09-15 05:41] LABS: Anion Gap 8 (5-15); BUN 13 mg/dL (7-18); BUN/Creat Ratio 20.4 RATIO (10-20); Calcium,Total 8.2 mg/dL (8.5-10.1); Chloride 97 mmol/L (98-107); Creatinine, Serum 0.64 mg/dL (0.55-1.02); EST Glomerular Filtration Rate 95 mL/min (>60); Est Glom Filt Rate - Afr Amer 115 mL/min (>60); Glucose 163 mg/dL (74-106); Potassium 3.3 mmol/L (3.5-5.1); Sodium Level 138 mmol/L (136-145)
[2018-09-15] MEDS: Levothyroxine 50 MCG Tablet PO (06:59)
--- NOTE | 2018-09-15 07:21 | PN_ITS ---
Patient Problems: Active and Suspected Problems (Last Reviewed 09/11/18 @ 12:43 by Baljinder Dubose MD) UTI (urinary tract infection) (Acute) Ureteral stone (Acute) right Severe sepsis (Acute) Subjective: Patient with no acute events overnight per self and per nursing report. Patient oxygenation was weaned down to 2-3 L. She did have walking ambulation and testing which initially was performed with no desaturation however patient with activity with physical and occupational therapy with oxygen requirements therefore testing repeated and patient did drop to < 88% with exertional effort. Patient remains eager for discharge. Patient amenable to therapy outpatient. Discussed plan of care which included continued antibiotic therapy with pulmonary medicine evaluation outpatient and future repeat CT chest to reevaluate. Patient denies fevers, chills, nausea, emesis, abdominal pain, chest pain or dyspnea. Objective: Physical Examination: General: awake, alert, oriented x 4, initially walking in the room, no obvious distress. Skin: normal color, turgor, no icterus, cyanosis. HEENT: AT/NC, EOMI, PERRLA, improved MMM. Lungs: Diminished breath sounds, > bases, BL, no rales, rhonchi or wheezing. Heart: Regular rate and rhythm; no gallop, rub audible. Abdomen: soft, NTTP, resolved prior flank discomfort, ND, normal BS. Extremities: no cyanosis, clubbing, or edema. Neurological: patient awake, alert, oriented as noted; cognitive function appears improved, nearing baseline intact; pupils equally reactive to light and accomodation; cranial nerves II-XII grossly normal, moving all 4 extremities, no focal deficits, strength proving, moderately globally decreased. Psychiatric: affect appears normal, no acute evidence of depressive or anxiety feelings. Vitals/I&O's: Vital Signs Temp Pulse Resp BP Pulse Ox 97.8 F 101 H 18 136/82 H 99 09/15/18 03:20 09/15/18 07:00 09/15/18 03:20 09/15/18 03:20 09/15/18 03:20 Oxygen Flow Rate (L/min) 10 Oxygen Delivery Method Nasal Cannula Weight: 165 lb 2.02 oz Body Mass Index (BMI) 28.2 Intake and Output for Last 24 Hours 09/13/18 09/14/18 09/15/18 23:59 23:59 23:59 Intake Total 537 / 537 989 / 989 60 / 60 Output Total 300 / 300 1700 / 1700 Balance 237 / 237 -711 / -711 60 60 Microbiology Past 72 Hours 09/11/18 13:10 Urine, Cystoscopy Urine Culture - Final Escherichia coli#2 Escherichia coli Laboratory Results 09/14/18 07:40: Sodium 140, Potassium 3.3 L, Chloride 104, Carbon Dioxide 31.0, Anion Gap 5, BUN 16, Creatinine 0.61, Estim Creat Clear Calc 38.10, Est GFR (MDRD) Af Amer 121, Est GFR (MDRD) Non-Af 100, BUN/Creatinine Ratio 26.2 H, Glucose 167 H, Calcium 8.3 L, Magnesium 2.2 09/14/18 07:40: B-Natriuretic Peptide 387.8 H 09/14/18 07:40: WBC 13.7 H, RBC 3.88 L, Hgb 11.7 L, Hct 34.8 L, MCV 89.7, MCH 30.2, MCHC 33.6, RDW 14.6, RDW Differential 47.7 H, Plt Count 247, MPV 10.5, Immature Gran % (Auto) 0.300, Neut % (Auto) 84.2 H, Lymph % (Auto) 11.4 L, [place] % (Auto) 3.9, Eos % (Auto) 0.1, Baso % (Auto) 0.1, Absolute Neuts (auto) 11.6 H, Absolute Lymphs (auto) 1.56, Total Counted Not Reportable 09/14/18 07:40: PT 25.2 H, INR 2.3 09/14/18 12:56: POC Glucose 233 H 09/14/18 15:30: MRSA (PCR) Negative 09/14/18 17:02: POC Glucose 160 H 09/14/18 21:14: POC Glucose 173 H 09/15/18 04:50: WBC 9.3, RBC 4.11 L, Hgb 12.1, Hct 37.7, MCV 91.7, MCH 29.4, MCHC 32.1, RDW 14.0, RDW Differential 46.0 H, Plt Count 266, MPV 10.5, Immature Gran % (Auto) 1.800 H, Neut % (Auto) 72.7 H, Lymph % (Auto) 16.5 L, [place] % (Auto) 8.7, Eos % (Auto) 0.2, Baso % (Auto) 0.1, Absolute Neuts (auto) 6.7, Absolute Lymphs (auto) 1.53, Total Counted Not Reportable 09/15/18 04:50: PT 27.2 H, INR 2.5 09/15/18 04:50: Sodium 138, Potassium 3.3 L, Chloride 97 L, Carbon Dioxide 33.0 H, Anion Gap 8, BUN 13, Creatinine 0.64, Estim Creat Clear Calc 38.10, Est GFR (MDRD) Af Amer 115, Est GFR (MDRD) Non-Af 95, BUN/Creatinine Ratio 20.4 H, Glucose 163 H, Calcium 8.2 L Current Medications Acetaminophen (Tylenol) 650 mg PO Q6H PRN PRN PRN Reason: PAIN Last Admin: 09/15/18 03:49 Dose: 650 mg Albuterol Sulfate (Ventolin Aerosols) 2.5 mg INHALATION Q2H PRN PRN PRN Reason: dyspnea, wheezing Albuterol/Ipratropium (Duoneb) 3 ml INHALATION Q4HWA.RT [facility] Last Admin: 09/14/18 19:11 Dose: 3 ml Amlodipine Besylate (Norvasc) 10 mg PO DAILY [facility] Last Admin: 09/14/18 09:42 Dose: 10 mg Clonazepam (Klonopin) 0.5 mg PO Q8H PRN PRN PRN Reason: AGITATION Donepezil HCl (Aricept) 5 mg PO QHS [facility] Last Admin: 09/14/18 21:16 Dose: 5 mg Fluoxetine HCl (Prozac) 20 mg PO DAILY PRN PRN PRN Reason: MOOD Levofloxacin (Levaquin Iv) 750 mg in 150 mls @ 100 mls/hr IV Q48 [facility] Last Admin: 09/14/18 15:44 Dose: 100 mls/hr Insulin Human Lispro (Humalog Kwikpen (Bkc)) 0 unit SC ACHS [facility]; Protocol Last Admin: 09/14/18 21:15 Dose: 1 units Levothyroxine Sodium (Synthroid) 50 mcg PO DAILY@0600 [facility] Last Admin: 09/15/18 06:59 Dose: 50 mcg Metoprolol Tartrate (Lopressor (Beta Lani)) 25 mg PO BID [facility] Last Admin: 09/14/18 21:22 Dose: 25 mg Nutritional Formula (Lactose Free) (Ensure Enlive) 120 ml PO 4X/DAY [facility] Last Admin: 09/14/18 21:18 Dose: 120 ml Ondansetron HCl (Zofran) 4 mg IV Q6H PRN PRN PRN Reason: NAUSEA/VOMITING Last Admin: 09/15/18 06:30 Dose: 4 mg Oxycodone HCl (Oxyir) 5 mg PO Q6H PRN PRN PRN Reason: SEVERE PAIN (6-10/10) Last Admin: 09/14/18 17:06 Dose: 5 mg Potassium Chloride (K-Dur) 20 meq PO BIDCM [facility] Last Admin: 09/14/18 17:08 Dose: 20 meq Potassium Chloride (K-Dur) 40 meq PO X1 ONE Stop: 09/15/18 07:20 Sodium Chloride () 5 - 15 ml IV UD PRN PRN Reason: SALINE FLUSH Last Admin: 09/15/18 06:30 Dose: 10 ml Warfarin Sodium (Coumadin (Pbkc)) 3 mg PO DAILY@1700 [facility] Last Admin: 09/14/18 17:07 Dose: 3 mg Medical Necessity - Tobacco Use Smoking Status: Never smoker Tobacco Use: Non-smoker Assessment/Plan All Active Problems (Last Reviewed 09/11/18 @ 12:43 by Baljinder Dubose MD) UTI (urinary tract infection) (Acute) Ureteral stone (Acute) Severe sepsis (Acute) History of non-ST elevation myocardial infarction (NSTEMI) (Resolved 12/2010) The patient is an 83 y/o F w/ PMHx: CAD s/p PCI, HTN, HLD, Hypothyroidism, History of PE, Chronic Atrial Fibrillation, Suspected CKD, Suspected Chronic Anemia, Anxiety and Depression, Hx Nephrolithiasis who presents to the [facility] as direct admission on 09/11/18 from ED w/ severe sepsis, UTI, obstructive renal stone on their ED evaluation w/ recent onset R flank discomfort, worsening x 2 weeks w/ mild hematuria, dysuria and increased frequency with chills. (1) Acute Severe Sepsis secondary to Acute Complicated E. Coli Pyelonephritis with Hydronephrosis secondary to Acute Obstructive R Ureteral Calculi: Admitted to [facility], 09/11/18 OR w/ Dr. Dubose w/ cystoscopy right retrograde pyelogram, right stent placement, admission CBC w/ WBC 18.2 with L shift, IV rocephin-> transitioned to IV levaquin given allergy history and BSA needs w/ #2. IVFs held secondary to suspected hypoxia secondary to initially volume overload. Given patient clinically improved from #2, will plan discharge to home today on altered antibiotic regimen, Levaquin with plan urology reevaluation 1 week. (2) Acute Hypoxic and Mildly Hypercarbic Respiratory Failure (Increased RR, accessory muscle usage, hypoxia, increased work of breathing), Initially Suspected secondary to Volume Overload, however, possible CAP: CXR w/ bilateral pleural effusions with mild interstitial prominence, IVFs held, IV lasix administered with transition 09/13/18 back to home oral regimen, repeat CXR with cardiomegaly, small effusions otherwise chronic lung changes but no overt acute cardiopulmonary finding. ECHO 07/28/18 w/ normal LV size, normal LV systolic function, EF 60%, unable to assess diastolic dysfunction secondary to arrhythmia, mildly enlarged LA, mild TVI, pulmonary artery systolic pressure 28 mmHg. Maintained on coumadin w/ therapeutic INR thus PE less likely, maintained on metoprolol, deferws statin given age. 09/13/18 worsening status, ABG with pH 7.43, oxygen saturation 91 on 8 L nasal cannula, PCO2 47.3, PO2 61. Requested pulmonary evaluation. Improved appearance 09/15/18, still 10L NC supplementation. 09/14/18 repeat AM CXR w/ blunting of the costophrenic angles left greater than right with appearance of possible vascular congestion and mild bibasilar atelectasis worse on the left. CT Chest obtained w/ small bilateral pleural effusions with bibasilar atelectasis and/or infiltrates, patchy atelectasis and/or infiltrates seen along the posterior aspect of both upper lobes with no significant CHF demonstrated. She is antibiotic therapy following discussion with pulmonary medicine transition from IV Rocephin to IV Levaquin, MRSA negative. Oxygenation testing with 2-3L NC secondary to oxygenation <88%, therefore O2 set up for home. Will plan discharge on 5 additional day regimen Levaquin renally dosed with planned pulmonary medicine follow-up in 1-2 weeks, plan future repeat CT chest to assure resolution of infiltrates. (3) Hypokalemia: Admission K+ 2.7, supplementation given, repeat level in AM 3.3, additional supplementation administered. Mag 2.2. (4) Acute kidney injury: Secondary to acute presentation #1. Admission BUN/Cr 24/1.09, prior baseline creatinine noted to be 0.7. Held hydration with volume overload, held nephrotoxic medications. 09/15/18 BUN/Cr 13/0.64. (5) Suspected Underlying Dementia, Unclear Type: Unclear behavioral disturbance history, family noting has been giving patient medications, possibly not routinely, suspected underlying dementia, started on Aricept which will be continued upon discharge. Additionally requested case management assist with possible family need for pre-packaged medications to assure better compliance and avoid incorrect usage. (6) Chronic Normocytic Anemia: Admission Hgb 10.2, baseline appears 9-10, 09/15/18 Hgb 12.1, stable. (7) CAD: s/p PCI MARYBEL-Mid RCA w 3.0 x 23 mm Promus Stent 12/20/2010, maintain on coumadin w/ INR trending. (8) Chronic Atrial Fibrillation: Continue home metoprolol and coumadin regimen w/ INR trending. ECHO 07/28/18 w/ normal LV size, normal LV systolic function, EF 60%, unable to assess diastolic dysfunction secondary to arrhythmia, mildly enlarged LA, mild TVI, pulmonary artery systolic pressure 28 mmHg. Maintained on coumadin w/ therapeutic INR thus PE less likely, maintained on metoprolol, deferws statin given age. (9) Diabetes mellitus type II: Hold oral home regimen, continue home insulin regimen, ADA diet, accu checks w/ ISS. (10) Hypertension: Continue home regimen including Norvasc, metoprolol, IV Lasix as noted transiently, PRN hydralazine. (11) Hypothyroidism: Continue home synthroid regimen, TSH normal. (12) History of PE: Continue home Coumadin regimen with INR trending. (13) Anxiety and Depression: Continue home Prozac and clonazepam regimen. (14) DVT Prophylaxis: SCDs, coumadin w/ INR trending, 09/15/18 INR 2.5.
[2018-09-15 07:31] LABS: Bedside Glucose 170 mg/dL (70-110)
[2018-09-15] MEDS: Insulin Lispro 100 UNIT/ML INSULN.PEN SC ×2 (08:57→12:42)
[2018-09-15] MEDS: Metoprolol Tartrate 25 MG Tablet PO (09:59)
[2018-09-15] MEDS: amLODIPine 10 MG Tablet PO (09:59)
--- NOTE | 2018-09-15 10:22 | CASEMGMT ---
Addendum entered by Mallorie Barroso 09/15/18 14:10: Per Karen, PCU charge, Dr. Devlin would like information provided to pt/family regarding doc-u-dose/blister packs for pt meds. This RN CM to room to provide info at this time and /pt decline info at this time. Dr. Devlin aware, voices understanding. Maci NIETO CM Original Note: Addendum entered by Mallorie Barroso 09/15/18 12:28: Pt does qualify for home oxygen at this time. Pt states no preference for DME at this time. Referral faxed to [facility] at this time and call to Aby at [facility] to notify of referral faxed at this time, voices understanding. Maci NIETO CM Original Note: This RN CM to room to speak with pt/ and they state they would like OP therapy set up at [facility] at this time. This RN CM is still awaiting home oxygen testing for pt at this time. Referral to be faxed to [facility] once completed and signed by Dr. Devlin. Maci NIETO CM
--- NOTE | 2018-09-15 10:24 | PCM.PROGNOTE ---
Patient Problems: Active and Suspected Problems (Last Reviewed 09/11/18 @ 12:43 by Baljinder Dubose MD) UTI (urinary tract infection) (Acute) Ureteral stone (Acute) right Severe sepsis (Acute) Subjective: The patient was seen and examined at the bedside this morning. Events from the last 24 hours have been reviewed. The patient is currently afebrile, hemodynamically stable and maintaining appropriate oxygen saturations on 2 L/min via nasal cannula. Potassium is low this morning at 3.3. The patient is currently documented to be overall net +1.9 L for the admission. Objective: The patient's most recent lab work, culture data and imaging studies have all been personally reviewed. Surface echocardiogram from July 2018 revealed normal LV size and function with an ejection fraction of 60%. Pulmonary artery systolic pressure was estimated to be 28 mmHg. Urine culture was positive for pansensitive E. coli. - Physical Exam General: Alert, Cooperative, No apparent distress, - - Sitting in bedside recliner HEENT: Atraumatic, PERRLA, Normocephalic Oral: No Gingival or Mucosal Lesions/ Ulcerations Neck: Supple, No Nodes, Trachea Midline Lungs: No rhonchi, No wheeze, No rales Cardiovascular: Regular rate, Regular Rhythm, Normal S1, Normal S2, No murmurs Abdomen: Bowel Sounds Present, Soft, Non Tender Extremities: No clubbing, No cyanosis, No edema Skin: No breakdown Musculoskeletal: No Tenderness to Palpation of Joints or Extremities Lymphatic: No Cervical, Supraclavicular, or Inguinal Adenopathy Neurological: Cranial nerves II-XII grossly intact, Neuro grossly intact Psych/Mental Status: Normal Affect, Appropriate Vital Signs Temp Pulse Resp BP Pulse Ox 36.6 C 97 18 125/60 H 93 09/15/18 03:20 09/15/18 09:59 09/15/18 03:20 09/15/18 09:59 09/15/18 08:00 Oxygen Flow Rate (L/min) 2 Oxygen Delivery Method Nasal Cannula Weight: 165 lb 2.02 oz Body Mass Index (BMI) 28.2 Intake and Output for Last 24 Hours 09/13/18 09/14/18 09/15/18 23:59 23:59 23:59 Intake Total 537 / 537 989 / 989 60 / 60 Output Total 300 / 300 1700 / 1700 Balance 237 / 237 -711 / -711 60 / 60 Microbiology Past 72 Hours 09/11/18 13:10 Urine Culture - Final Urine, Cystoscopy Escherichia coli#2 Escherichia coli Laboratory Tests Past 24 Hrs 09/14/18 09/15/18 09/15/18 15:30 04:50 04:50 WBC 9.3 RBC 4.11 L Hgb 12.1 Hct 37.7 MCV 91.7 MCH 29.4 MCHC 32.1 RDW 14.0 RDW Differential 46.0 H Plt Count 266 MPV 10.5 Immature Gran % (Auto) 1.800 H Neut % (Auto) 72.7 H Lymph % (Auto) 16.5 L [place] % (Auto) 8.7 Eos % (Auto) 0.2 Baso % (Auto) 0.1 Absolute Neuts (auto) 6.7 Absolute Lymphs (auto) 1.53 Total Counted Not Reportable PT 27.2 H INR 2.5 Sodium Potassium Chloride Carbon Dioxide Anion Gap BUN Creatinine Estim Creat Clear Calc Est GFR (MDRD) Af Amer Est GFR (MDRD) Non-Af BUN/Creatinine Ratio Glucose Calcium MRSA (PCR) Negative 09/15/18 04:50 WBC RBC Hgb Hct MCV MCH MCHC RDW RDW Differential Plt Count MPV Immature Gran % (Auto) Neut % (Auto) Lymph % (Auto) [place] % (Auto) Eos % (Auto) Baso % (Auto) Absolute Neuts (auto) Absolute Lymphs (auto) Total Counted PT INR Sodium 138 Potassium 3.3 L Chloride 97 L Carbon Dioxide 33.0 H Anion Gap 8 BUN 13 Creatinine 0.64 Estim Creat Clear Calc 38.10 Est GFR (MDRD) Af Amer 115 Est GFR (MDRD) Non-Af 95 BUN/Creatinine Ratio 20.4 H Glucose 163 H Calcium 8.2 L MRSA (PCR) POC Glucose 09/15/18 09/14/18 09/14/18 06:58 21:14 17:02 POC Glucose 170 H 173 H 160 H 09/14/18 12:56 POC Glucose 233 H Clinical Impression(s) from Imaging Studies Chest X-Ray 09/11/18 18:06 IMPRESSION: Smaller and bilateral pleural effusions and mild interstitial prominence. at 0426 Reported and signed by: Isael Rich MD Electronically Signed: Isael Rich, at 4:25 EDT Tel , Service support , Chest X-Ray 09/12/18 17:47 IMPRESSION: COPD, mild cardiomegaly and small pleural effusions. Electronically Signed: Alena Kaplan MD at 9:19 EDT , Service support , Chest X-Ray 09/14/18 06:23 IMPRESSION: Blunting of both costophrenic angles slightly worse on the left side with vascular congestion and mild bibasilar atelectasis worse on the left side. Electronically Signed: Huseyin Manny, at 10:10 EDT , Service support , Chest CT 09/14/18 10:40 IMPRESSION: Small bilateral pleural effusions with bibasilar atelectasis and/or infiltrates. Patchy atelectasis and/or infiltrates also seen along the posterior aspect of both upper lobes. No significant CHF is seen. Electronically Signed: Huseyin Bryant, at 13:12 EDT , Service support , Medical Necessity - Tobacco Use Smoking Status: Never smoker Tobacco Use: Non-smoker Assessment/Plan All Active Problems (Last Reviewed 09/11/18 @ 12:43 by Baljinder Dubose MD) UTI (urinary tract infection) (Acute) Ureteral stone (Acute) Severe sepsis (Acute) History of non-ST elevation myocardial infarction (NSTEMI) (Resolved 12/2010) RECOMMENDATIONS: 1. Continue Levaquin to complete a total of 7 days of treatment. 2. Potassium repletion as indicated. 3. Continue to wean supplemental oxygen to maintain saturations at or above 90%. 4. Encourage incentive spirometer use and mobilize patient as tolerated. 5. Perform walking oximetry study prior to consideration for discharge from the hospital. 6. Outpatient pulmonary follow-up in 2 weeks, with plans to repeat chest CT in 6-8 weeks. IMPRESSIONS: 1. Acute hypoxemic and hypercarbic respiratory failure While the patient does not routinely have a supplemental oxygen required at her baseline, she did require upwards of 10 L/min during her hospital stay. She does not have a significant history of any underlying lung pathology. Her last plain film chest imaging revealed a mild degree of cardiomegaly and small bilateral pleural effusions. Follow-up chest CT did reveal patchy infiltrates along the posterior aspect of the upper lobes. The patient was placed on Levaquin, with plans to complete a 7-day treatment course. She also responded to IV diuretic therapy. The patient can follow-up in the pulmonary medicine clinic within 2 weeks of her discharge. Perform walking oximetry study today. 2. Severe sepsis secondary to E. coli pyelonephritis Continue antibiotics as ordered. 3. Hypokalemia Additional potassium repletion as indicated. 4. Coronary artery disease status post PCI/chronic atrial fibrillation Continue current cardiac regimen. Continue Coumadin and check daily INR levels. 5. Personal history of venous thromboembolic disease/anxiety/depression/hypothyroidism/diabetes/hypertension Complicates care, management, recovery and prognosis. Continue home medications as indicated. This note was generated with [employer] dictation software. It may contain incorrect words, spelling, and punctuation that were not noted in checking the note before signing. Code Visit Inpatient E&M: 65296 Subs Hosp L2
[2018-09-15] MEDS: Ipratropium/Albuterol Sulfate 3 ML AMPUL.NEB INHALATION (10:59)
--- NOTE | 2018-09-15 11:20 | PCM.DC ---
- Discharge Diagnoses Current Active Problems: Current Active and Chronic Problems (Last Reviewed 09/11/18 @ 12:43 by Baljinder Dubose MD) (1) Acute Severe Sepsis secondary to Acute Complicated E. Coli Pyelonephritis with Hydronephrosis secondary to Acute Obstructive R Ureteral Calculi (2) Acute Hypoxic and Mildly Hypercarbic Respiratory Failure (Increased RR, accessory muscle usage, hypoxia, increased work of breathing), Initially Suspected secondary to Volume Overload, however, Dx CAP (3) Hypokalemia (4) Acute kidney injury, Secondary to acute presentation #1 (5) Suspected Underlying Dementia, Unclear Type, Unclear behavioral disturbance history (6) Chronic Normocytic Anemia (7) CAD s/p PCI MARYBEL-Mid RCA (8) Chronic Atrial Fibrillation (9) Diabetes mellitus type II (10) Hypertension (11) Hypothyroidism (12) History of PE (13) Anxiety and Depressio You will use the following diet at home:: Cardiac Your food should be the consistency of: Regular Your liquids should be the consistency of: Regular/Thin Discharge Activity: - - Advised reduced effort activities until reevaluation per pulmonary in 1-2 weeks. Also avoid any activities advised against per urology until follow-up in the office in 1 week. May resume sexual activity in: - - Avoid intercourse until cleared per urology. Weight Bearing Status: Weight bearing as tolerated Call your doctor if you observe: Fever of 101 or Higher, Inability to urinate, Inability to have a bowel movement, Shortness of breath, Dizziness, Fainting spells, Chest pain, Uncontrolled pain Instructions: Discharge Instructions for Pyelonephritis, Ureteral Stents, Discharge Instructions for Acute Kidney Injury, Discharge Instructions for Hypokalemia, Pneumonia Treatment, Preventing Pneumonia Additional Instructions: Please complete the antibiotic therapy. Plan follow-up within 1 week with urology. Plan follow-up with pulmonary medicine [employer] PRODUCTION [employer]INE[employer] in 1-2 weeks. Upon evaluation per pulmonary medicine will have arranged follow-up CT chest to assure resolution. Allergies/Adverse Reactions: Allergies codeine Allergy (Verified 07/14/18 09:33) Chest tightness levofloxacin [From Levaquin] Allergy (Verified 07/14/18 09:33) Unknown Penicillins Allergy (Verified 07/14/18 09:33) Rash [id number] Reductase Inhibitor Allergy (Verified 07/14/18 09:33) myalgias Sulfa (Sulfonamide Antibiotics) Allergy (Verified 07/14/18 09:33) unknown Medications to take at Discharge Albuterol IH (ProAir) [Proair Hfa] 1 - 2 puff INHALATION Q4H PRN PRN 05/17/15 Amlodipine [Norvasc] 10 mg PO DAILY 05/17/15 Aspirin [Aspirin, Baby] 81 mg PO DAILY@0800 05/17/15 Levothyroxine [Synthroid] 50 mcg PO DAILY 05/17/15 Warfarin [Coumadin] 3 mg PO DAILY 05/17/15 metoprolol tartrate 25 mg tablet 25 mg PO BID 10/30/17 clonazepam 1 mg tablet 0.5 mg PO BID 07/14/18 Fluoxetine [Prozac] 20 mg PO DAILY PRN PRN 09/11/18 Furosemide [Lasix] 20 mg PO DAILY 09/11/18 Donepezil HCl [Aricept] 5 mg PO QHS #30 tablet 09/15/18 Potassium Chloride [K-Dur] 20 meq PO BIDCM #60 tablet 09/15/18 levoFLOXacin tablet [Levaquin tablet] 750 mg PO Q48H #3 tablet 09/15/18 The following prescriptions were given: Donepezil HCl [Aricept] 5 mg PO QHS #30 tablet levoFLOXacin tablet [Levaquin tablet] 750 mg PO Q48H #3 tablet Potassium Chloride [K-Dur] 20 meq PO BIDCM #60 tablet Primary Care Physician: Sp Joe MD [Primary Care Provider] - Please follow up with your Primary Care Physician in: Follow-up within 3-5 days. Test Results: Test results from this visit will be discussed in further detail at your follow-up appointment, if applicable. Please Follow Up With: Marlene Wooten NP-C When: Follow-up with Pulmonary PROJECT PRODUCTION ENGINEER within 1-2 weeks. Please Follow Up With: Baljinder Dubose MD When: Follow-up 1 week. Proposed Discharge Date: 09/15/18
--- NOTE | 2018-09-15 11:24 | DCINST_ITS ---
- Discharge Diagnoses Current Active Problems: Current Active and Chronic Problems (Last Reviewed 09/11/18 @ 12:43 by Baljinder Dubose MD) (1) Acute Severe Sepsis secondary to Acute Complicated E. Coli Pyelonephritis with Hydronephrosis secondary to Acute Obstructive R Ureteral Calculi (2) Acute Hypoxic and Mildly Hypercarbic Respiratory Failure (Increased RR, accessory muscle usage, hypoxia, increased work of breathing), Initially Suspected secondary to Volume Overload, however, Dx CAP (3) Hypokalemia (4) Acute kidney injury, Secondary to acute presentation #1 (5) Suspected Underlying Dementia, Unclear Type, Unclear behavioral disturbance history (6) Chronic Normocytic Anemia (7) CAD s/p PCI MARYBEL-Mid RCA (8) Chronic Atrial Fibrillation (9) Diabetes mellitus type II (10) Hypertension (11) Hypothyroidism (12) History of PE (13) Anxiety and Depressio You will use the following diet at home:: Cardiac Your food should be the consistency of: Regular Your liquids should be the consistency of: Regular/Thin Discharge Activity: - - Advised reduced effort activities until reevaluation per pulmonary in 1-2 weeks. Also avoid any activities advised against per urology until follow-up in the office in 1 week. May resume sexual activity in: - - Avoid intercourse until cleared per urology. Weight Bearing Status: Weight bearing as tolerated Call your doctor if you observe: Fever of 101 or Higher, Inability to urinate, Inability to have a bowel movement, Shortness of breath, Dizziness, Fainting spells, Chest pain, Uncontrolled pain Instructions: Discharge Instructions for Pyelonephritis, Ureteral Stents, Discharge Instructions for Acute Kidney Injury, Discharge Instructions for Hypokalemia, Pneumonia Treatment, Preventing Pneumonia Additional Instructions: Please complete the antibiotic therapy. Plan follow-up within 1 week with urology. Plan follow-up with pulmonary medicine REC THERAPIST in 1-2 weeks. Upon evaluation per pulmonary medicine will have arranged follow-up CT chest to assure resolution. Allergies/Adverse Reactions: Allergies codeine Allergy (Verified 07/14/18 09:33) Chest tightness levofloxacin [From Levaquin] Allergy (Verified 07/14/18 09:33) Unknown Penicillins Allergy (Verified 07/14/18 09:33) Rash Wgetems-Rde-Ykk Reductase Inhibitor Allergy (Verified 07/14/18 09:33) myalgias Sulfa (Sulfonamide Antibiotics) Allergy (Verified 07/14/18 09:33) unknown Medications to take at Discharge Albuterol IH (ProAir) [Proair Hfa] 1 - 2 puff INHALATION Q4H PRN PRN 05/17/15 Amlodipine [Norvasc] 10 mg PO DAILY 05/17/15 Aspirin [Aspirin, Baby] 81 mg PO DAILY@0800 05/17/15 Levothyroxine [Synthroid] 50 mcg PO DAILY 05/17/15 Warfarin [Coumadin] 3 mg PO DAILY 05/17/15 metoprolol tartrate 25 mg tablet 25 mg PO BID 10/30/17 clonazepam 1 mg tablet 0.5 mg PO BID 07/14/18 Fluoxetine [Prozac] 20 mg PO DAILY PRN PRN 09/11/18 Furosemide [Lasix] 20 mg PO DAILY 09/11/18 Donepezil HCl [Aricept] 5 mg PO QHS #30 tablet 09/15/18 Potassium Chloride [K-Dur] 20 meq PO BIDCM #60 tablet 09/15/18 levoFLOXacin tablet [Levaquin tablet] 750 mg PO Q48H #3 tablet 09/15/18 The following prescriptions were given: Donepezil HCl [Aricept] 5 mg PO QHS #30 tablet levoFLOXacin tablet [Levaquin tablet] 750 mg PO Q48H #3 tablet Potassium Chloride [K-Dur] 20 meq PO BIDCM #60 tablet Primary Care Physician: Sp Joe MD [Primary Care Provider] - Please follow up with your Primary Care Physician in: Follow-up within 3-5 days. Test Results: Test results from this visit will be discussed in further detail at your follow- up appointment, if applicable. Please Follow Up With: Marlene Wooten NP-C When: Follow-up with Pulmonary REC THERAPIST within 1-2 weeks. Please Follow Up With: Baljinder Dubose MD When: Follow-up 1 week. Proposed Discharge Date: 09/15/18
--- NOTE | 2018-09-15 11:25 | DS.PCM_ITS ---
Discharge Date and Diagnosis - Problem List Patient Problems: Active and Suspected Problems (Last Reviewed 09/11/18 @ 12:43 by Baljinder Dubose MD) UTI (urinary tract infection) (Acute) Ureteral stone (Acute) right Severe sepsis (Acute) Date of Admission: 09/11/18 Date of Discharge: 09/15/18 - Primary Discharge Diagnosis Active and Suspected Problems (Last Reviewed 09/11/18 @ 12:43 by Baljinder Dubose MD) (1) Acute Severe Sepsis secondary to Acute Complicated E. Coli Pyelonephritis with Hydronephrosis secondary to Acute Obstructive R Ureteral Calculi (2) Acute Hypoxic and Mildly Hypercarbic Respiratory Failure (Increased RR, accessory muscle usage, hypoxia, increased work of breathing), Initially Suspected secondary to Volume Overload, however CT chest consistent with CAP (3) Hypokalemia (4) Acute kidney injury, Secondary to acute presentation #1 (5) Suspected Underlying Dementia, Unclear Type, Unclear behavioral disturbance history (6) Chronic Normocytic Anemia (7) CAD s/p PCI MARYBEL-Mid RCA (8) Chronic Atrial Fibrillation (9) Diabetes mellitus type II (10) Hypertension (11) Hypothyroidism (12) History of PE (13) Anxiety and Depression - Secondary Discharge Diagnosis Chronic Problems (Last Reviewed 09/11/18 @ 12:43 by Baljinder Dubose MD) CAD (coronary artery disease) (Chronic) Hyperlipidemia (Chronic) Atherosclerosis of coronary artery of [place] heart without angina pectoris (Chronic) PCI-MARYBEL-Mid RCA w 3.0 x 23 mm Promus Stent 12/20/2010 Essential (primary) hypertension (Chronic) History of coronary artery stent placement (Chronic 12/20/10) PCI-MARYBEL-Mid RCA w 3.0 x 23 mm Promus Stent 12/20/2010 Chronic atrial fibrillation (Chronic) Pulmonary embolism (Chronic) Hospital Course and Treatment Operations: - - 09/11/18 cystoscopy right retrograde pyelogram, right ureteral stent placement. Procedures: EKG, Transthoracic echo, - - FFP administration. Summary of Care Provided: The patient is an 83 y/o F w/ PMHx: CAD s/p PCI, HTN, HLD, Hypothyroidism, History of PE, Chronic Atrial Fibrillation, Suspected CKD, Suspected Chronic Anemia, Anxiety and Depression, Hx Nephrolithiasis who presented to the [facility] as direct admission on 09/11/18 from ED w/ severe sepsis, UTI, obstructive renal stone on their ED evaluation w/ recent onset R flank discomfort, worsening x 2 weeks w/ mild hematuria, dysuria and increased frequency with chills. Admitted to [facility], 09/11/18 OR w/ Dr. Dubose w/ cystoscopy right retrograde pyelogram, right stent placement, admission CBC w/ WBC 18.2 with L shift, IV rocephin-> transitioned to IV levaquin given allergy history and pulmonary status. Acute Hypoxic and Mildly Hypercarbic Respiratory Failure (Increased RR, accessory muscle usage, hypoxia, increased work of breathing), Initially Suspected secondary to Volume Overload, however, possible CAP: CXR w/ bilateral pleural effusions with mild interstitial prominence, IVFs held, IV lasix administered with transition 09/13/18 back to home oral regimen, repeat CXR with cardiomegaly, small effusions otherwise chronic lung changes but no overt acute cardiopulmonary finding. ECHO 07/28/18 w/ normal LV size, normal LV systolic function, EF 60%, unable to assess diastolic dysfunction secondary to arrhythmia, mildly enlarged LA, mild TVI, pulmonary artery systolic pressure 28 mmHg. Maintained on coumadin w/ therapeutic INR thus PE less likely, maintained on metoprolol, deferws statin given age. 09/13/18 worsening status, ABG with pH 7.43, oxygen saturation 91 on 8 L nasal cannula, PCO2 47.3, PO2 61. Requested pulmonary evaluation. Improved appearance 09/15/18, still 10L NC supplementation. 09/14/18 repeat AM CXR w/ blunting of the costophrenic angles left greater than right with appearance of possible vascular congestion and mild bibasilar atelectasis worse on the left. CT Chest obtained w/ small bilateral pleural effusions with bibasilar atelectasis and/or infiltrates, patchy atelectasis and/or infiltrates seen along the posterior aspect of both upper lobes with no significant CHF demonstrated. She is antibiotic therapy following discussion with pulmonary medicine transition from IV Rocephin to IV Levaquin, MRSA negative. Oxygenation testing with 2-3L NC secondary to oxygenation <88%, therefore O2 set up for home. Will plan discharge on 5 additional day regimen Levaquin renally dosed with planned pulmonary medicine follow-up in 1-2 weeks, plan future repeat CT chest to assure resolution of infiltrates. Acute kidney injury, secondary to acute urological presentation with admission BUN/Cr 24/1.09, prior baseline creatinine noted to be 0.7. Held hydration with volume overload, held nephrotoxic medications with improvement, 09/15/18 BUN/Cr 13/0.64. During evaluation, suspected Underlying Dementia, Unclear Type, Unclear behavioral disturbance history. Family noting that the spouse has been giving patient medications, possibly not routinely also complicating her presentation. Patient started on Aricept, continued upon discharge. Additionally requested case management assist with possible family need for pre-packaged medications to assure better compliance and avoid incorrect usage. Admission Hgb 10.2, baseline appears 9-10, 09/15/18 Hgb 12.1, stable. Patient discharged to home in improved condition with outpatient therapy set up with oxygen supplementation also set up with follow-up with pulmonary medicine as well as her primary care physician and urology. Patient Problems: Active and Suspected Problems (Last Reviewed 09/11/18 @ 12:43 by Baljinder Dubose MD) UTI (urinary tract infection) (Acute) Ureteral stone (Acute) right Severe sepsis (Acute) - Physical Exam Vital Signs Temp Pulse Resp BP Pulse Ox 97.8 F 97 14 125/60 H 93 09/15/18 03:20 09/15/18 10:59 09/15/18 10:59 09/15/18 09:59 09/15/18 10:59 Oxygen Flow Rate (L/min) 2 Oxygen Delivery Method Room Air Weight: 165 lb 2.02 oz Body Mass Index (BMI) 28.2 Intake and Output for Last 24 Hours 09/13/18 09/14/18 09/15/18 23:59 23:59 23:59 Intake Total 537 / 537 989 / 989 60 / 60 Output Total 300 / 300 1700 / 1700 Balance 237 / 237 -711 / -711 60 / 60 Microbiology Past 72 Hours 09/11/18 13:10 Urine Culture - Final Urine, Cystoscopy Escherichia coli#2 Escherichia coli Laboratory Tests Past 24 Hrs 09/14/18 09/15/18 09/15/18 15:30 04:50 04:50 WBC 9.3 RBC 4.11 L Hgb 12.1 Hct 37.7 MCV 91.7 MCH 29.4 MCHC 32.1 RDW 14.0 RDW Differential 46.0 H Plt Count 266 MPV 10.5 Immature Gran % (Auto) 1.800 H Neut % (Auto) 72.7 H Lymph % (Auto) 16.5 L [place] % (Auto) 8.7 Eos % (Auto) 0.2 Baso % (Auto) 0.1 Absolute Neuts (auto) 6.7 Absolute Lymphs (auto) 1.53 Total Counted Not Reportable PT 27.2 H INR 2.5 Sodium Potassium Chloride Carbon Dioxide Anion Gap BUN Creatinine Estim Creat Clear Calc Est GFR (MDRD) Af Amer Est GFR (MDRD) Non-Af BUN/Creatinine Ratio Glucose Calcium MRSA (PCR) Negative 09/15/18 04:50 WBC RBC Hgb Hct MCV MCH MCHC RDW RDW Differential Plt Count MPV Immature Gran % (Auto) Neut % (Auto) Lymph % (Auto) [place] % (Auto) Eos % (Auto) Baso % (Auto) Absolute Neuts (auto) Absolute Lymphs (auto) Total Counted PT INR Sodium 138 Potassium 3.3 L Chloride 97 L Carbon Dioxide 33.0 H Anion Gap 8 BUN 13 Creatinine 0.64 Estim Creat Clear Calc 38.10 Est GFR (MDRD) Af Amer 115 Est GFR (MDRD) Non-Af 95 BUN/Creatinine Ratio 20.4 H Glucose 163 H Calcium 8.2 L MRSA (PCR) POC Glucose 09/15/18 09/14/18 09/14/18 06:58 21:14 17:02 POC Glucose 170 H 173 H 160 H 09/14/18 12:56 POC Glucose 233 H Discharge Activity: - - Advised reduced effort activities until reevaluation per pulmonary in 1-2 weeks. Also avoid any activities advised against per urology until follow-up in the office in 1 week. May resume sexual activity in: - - Avoid intercourse until cleared per urology. Weight Bearing Status: Weight bearing as tolerated Call your doctor if you observe: Fever of 101 or Higher, Inability to urinate, Inability to have a bowel movement, Shortness of breath, Dizziness, Fainting spells, Chest pain, Uncontrolled pain Home Medications: Medications to take at Discharge Albuterol IH (ProAir) [Proair Hfa] 1 - 2 puff INHALATION Q4H PRN PRN 05/17/15 Amlodipine [Norvasc] 10 mg PO DAILY 05/17/15 Aspirin [Aspirin, Baby] 81 mg PO DAILY@0800 05/17/15 Levothyroxine [Synthroid] 50 mcg PO DAILY 05/17/15 Warfarin [Coumadin] 3 mg PO DAILY 05/17/15 metoprolol tartrate 25 mg tablet 25 mg PO BID 10/30/17 clonazepam 1 mg tablet 0.5 mg PO BID 07/14/18 Fluoxetine [Prozac] 20 mg PO DAILY PRN PRN 09/11/18 Furosemide [Lasix] 20 mg PO DAILY 09/11/18 Donepezil HCl [Aricept] 5 mg PO QHS #30 tablet 09/15/18 Potassium Chloride [K-Dur] 20 meq PO BIDCM #60 tablet 09/15/18 levoFLOXacin tablet [Levaquin tablet] 750 mg PO Q48H #3 tablet 09/15/18 Following Prescrptions Were Given to Patient: Donepezil HCl [Aricept] 5 mg PO QHS #30 tablet levoFLOXacin tablet [Levaquin tablet] 750 mg PO Q48H #3 tablet Potassium Chloride [K-Dur] 20 meq PO BIDCM #60 tablet Primary Care Physician: Sp Joe MD [Primary Care Provider] - Please follow up with your Primary Care Physician in: Follow-up within 3-5 days. Please Follow Up With: Marlene Wooten NP-C When: Follow-up with Pulmonary FRONT COUNTER CLERK within 1-2 weeks. Please Follow Up With: Baljinder Dubose MD When: Follow-up 1 week. Patient Instructions: Preventing Pneumonia, Pneumonia Treatment, Ureteral Stents, Discharge Instructions for Acute Kidney Injury, Discharge Instructions for Hypokalemia, Discharge Instructions for Pyelonephritis Disposition: Home Minutes spent on discharge:: 35 Patient Condition:: Fair Medical Necessity - Tobacco Use Smoking Status: Never smoker Tobacco Use: Non-smoker Meaningful Use Info Meaningful Use Diagnoses (Choose all that apply): None applicable Code Visit Inpatient E&M: 32625 Disch Hosp
[2018-09-15 11:46] LABS: Bedside Glucose 180 mg/dL (70-110)
--- NOTE | 2018-09-15 11:53 | NURSING ---
checked pox while pt in bed resting and was 88%. up to side of bed and dropped to 87% on ra. o2 applied at 2l and went to 90% up to ambulate around in halls and with exertion pt dropped to 88%. o2 up to 3l and sats 91%. o2 sats up to 95% when back to bed on 3l and encouraged deep slow breaths. aware and updated. will talk with cm. pt with obvious signs of fatigue after being up all morning and walking freq.
--- NOTE | 2018-09-16 14:54 | CASEMGMT ---
GERSON MURRELL DC PHONE CALL DC DATE: 09/15/18 DC Disposition: Home LACE/STRATA: 9 Intro role of CM to patient's . He states pt is doing well, had not had an appetite, but ate this am. No questions re: dc instructions, prescriptions or follow up appts. is assisting with medications. -No care improvement suggestions given. States her care @ [facility] was very good. Vikram BURCIAGA RN ACM
== END 2018-09-15 14:26 | disposition home or self-care (01) | DRG 853 ==
LOC: ICU 12:07 → PCU 12:43
PROVIDERS: Internal Medicine Critical Care Medicine; Urology; Admitting Provider Internal Medicine; Family Provider Family Medicine; PCP Family Medicine; Referring Provider Hospitalist; Visit Provider Family Medicine
PROC: 0T768DZ Dilation of Right Ureter with Intraluminal Device, Via Natural or Artificial Opening Endoscopic (ICD-10-PCS; principal; 2018-09-11 12:30)
DX: A41.51 Sepsis due to Escherichia coli [E. coli] (principal); J96.02 Acute respiratory failure with hypercapnia; J96.01 Acute respiratory failure with hypoxia; N17.9 Acute kidney failure, unspecified; N10 Acute pyelonephritis; N13.6 Pyonephrosis; R65.20 Severe sepsis without septic shock; E87.6 Hypokalemia; I25.10 Atherosclerotic heart disease of native coronary artery without angina pectoris; I48.2 Chronic atrial fibrillation; E03.9 Hypothyroidism, unspecified; F32.9 Major depressive disorder, single episode, unspecified; F41.9 Anxiety disorder, unspecified; E11.9 Type 2 diabetes mellitus without complications; E87.70 Fluid overload, unspecified; F03.90 Unspecified dementia, unspecified severity, without behavioral disturbance, psychotic disturbance, mood disturbance, and anxiety; D64.9 Anemia, unspecified; Z95.5 Presence of coronary angioplasty implant and graft; Z86.711 Personal history of pulmonary embolism; I10 Essential (primary) hypertension
CPT/HCPCS: 36415; 36600; 71045; 71046; 71250; 76000; 80048; 82803; 82962; 83735; 83880; 85025; 85610; 86900; 87077; 87086; 87088; 87186; 87641; 93005; 94640; 97110; 97162; 97166; 97530; 97802; J7030; J7040; P9017; A4216; C1769; C2617; J0696; J1940; J2405

== ENCOUNTER → 2018-10-05 14:45 | Outpatient (CLI) | payer MEDICARE, OTHER, SELFPAY ==
[2018-09-11 12:24] VITALS: BMI 28.2
== END ==
PROVIDERS: Family Provider Family Medicine; PCP Family Medicine; Referring Provider Nurse Practitioner Adult Health; Visit Provider Nurse Practitioner Adult Health
DX: R31.9 Hematuria, unspecified (principal)
CPT/HCPCS: 87086; 87088

== ENCOUNTER 2018-10-15 06:23 | Day surgery (SDC) | payer MEDICARE, OTHER, SELFPAY ==
[2018-09-11 12:24] VITALS: BMI 28.2
[2018-10-15 06:54] VITALS: BP 118/68; PULSE 69; RESP 16; TEMP 36.1; O2SAT 98; BMI 25.8
[2018-10-15 08:11] LABS: Prothrombin Time Fingerstick 13.8 SEC (11.9-14.4)
[2018-10-15] MEDS: Cefazolin 2 GM in 0.9% Normal Saline 100 ML IV (08:53)
--- NOTE | 2018-10-15 09:26 | DCINST_ITS ---
Discharge Diet: No Restrictions Discharge Activity: Return to Normal Activity, May Not Drive - for 2 days. Additional Activity Instructions:: Please be aware that pain medications may cause nausea. You should typically eat light foods as you take your pain medication. Pain medication may cause constipation, if this is a problem for you, please discuss with your doctor. Allergies/Adverse Reactions: Allergies codeine Allergy (Verified 10/08/18 10:00) Chest tightness levofloxacin [From Levaquin] Allergy (Verified 10/08/18 10:00) Unknown Penicillins Allergy (Verified 10/08/18 10:00) Rash Xnbknqd-Xfs-Htm Reductase Inhibitor Allergy (Verified 10/08/18 10:00) myalgias Sulfa (Sulfonamide Antibiotics) Allergy (Verified 10/08/18 10:00) unknown Medications to take at Discharge Albuterol IH (ProAir) [Proair Hfa] 1 - 2 puff INHALATION Q4H PRN PRN 05/17/15 Amlodipine [Norvasc] 10 mg PO DAILY 05/17/15 Aspirin [Aspirin, Baby] 81 mg PO DAILY@0800 05/17/15 Levothyroxine [Synthroid] 50 mcg PO DAILY 05/17/15 Warfarin [Coumadin] 3 mg PO DAILY 05/17/15 metoprolol tartrate 25 mg tablet 25 mg PO BID 10/30/17 clonazepam 1 mg tablet 0.5 mg PO BID 07/14/18 Fluoxetine [Prozac] 20 mg PO DAILY PRN PRN 09/11/18 Donepezil HCl [Aricept] 5 mg PO QHS #30 tab 09/15/18 Furosemide [Lasix] 20 mg PO DAILY 10/11/18 Vitamin B Complex 1 each PO DAILY 10/11/18 Nitrofurantoin Macrocrystals [Macrobid] 100 mg PO Q12 #6 capsule 10/15/18 The following prescriptions were given: Nitrofurantoin Macrocrystals [Macrobid] 100 mg PO Q12 #6 capsule Primary Care Physician: Sp Joe MD [Primary Care Provider] - Test Results: Test results from this visit will be discussed in further detail at your follow- up appointment, if applicable. Please Follow Up With: Baljinder Dubose MD When: in 2 weeks, please call to make an appointment.
--- NOTE | 2018-10-15 09:26 | PCM.OPRPT ---
Report of Operation Date of Procedure: 10/15/18 Pre-Operative Diagnosis: Right ureteral calculi status post stent Post-Operative Diagnosis: Same Surgery/Procedure Performed:: Cystoscopy, removal of the right stent, right ureteroscopy, right retrograde pyelogram, interpretation of flouroscopic images. Description of Surgical Findings:: 83-year-old female who about a month ago presented to the hospital with sepsis and obstructing stone she underwent aCystoscopy and stent placement, she now presents to the operating room for ureteroscopy delays with a obstructing stone and also to remove the stent. 83-year-old female taken back to the operating room after smooth induction of general anesthesia she was placed in dorsolithotomy position the urethra vaginal area prepped and draped in usual sterile fashion, went into the bladder with a 21 [place] rigid cystourethroscope grabbed the existing stent pulled out the meatus advance a wire through the stent all the way up to the kidney on the right side. Left the wire in place and then went next to the wire with the semirigid ureteroscope was able to get into the ureter quite easily went up as far as possible I could go could not see any stones along the course of the ureter to see inflammation areas where the stone could have been. I then switched over the flexible ureteroscope and went all the way to the kidney performed a retrograde pyelogram looked at the images and interpreted these and then performed pyeloscopy looking at the upper pole midpole lower pole of the kidney no other stone fragments were seen worked my way down the ureter no other fragments are seen along the course of the ureter I then put out the ureteroscope the patient's bladder was drained and said that the placed in the stent and patient anesthetic was reversed taken back to PACU good condition. Type of Anesthesia:: General Drains: none - Admit VTE Documentation VTE Present on Admission: No VTE Mechan Device Prophylaxis: SCD's
[2018-10-15 09:30] VITALS: BP 111/66; BP 118/68; PULSE 67; RESP 18; TEMP 36.7; O2SAT 98
[2018-10-15 09:45] VITALS: BP 116/66; BP 118/68; PULSE 73; RESP 18; O2SAT 100
[2018-10-15] MEDS: Ketorolac 15 MG/ML Vial IV (09:55)
[2018-10-15] MEDS: Metoclopramide 10 MG/2 ML Vial IV (09:55)
[2018-10-15 10:00] VITALS: BP 110/59; BP 118/68; PULSE 69; RESP 18; O2SAT 99
[2018-10-15 10:08] VITALS: BP 106/50; BP 118/68; PULSE 65; RESP 16; TEMP 36.4; O2SAT 93
[2018-10-15 11:05] VITALS: BP 110/54; BP 118/68; PULSE 70; RESP 18; TEMP 37; O2SAT 94
== END 2018-10-15 11:07 | disposition home or self-care (01) ==
LOC: SDC 06:30 → AC 06:31
PROVIDERS: Family Provider Family Medicine; PCP Family Medicine; Referring Provider Urology; Visit Provider Urology
PROC: 0TJ98ZZ Inspection of Ureter, Via Natural or Artificial Opening Endoscopic (ICD-10-PCS; CPT 52352; principal; 2018-10-15 08:25)
DX: N13.2 Hydronephrosis with renal and ureteral calculous obstruction (principal); D64.9 Anemia, unspecified; I25.10 Atherosclerotic heart disease of native coronary artery without angina pectoris; I10 Essential (primary) hypertension; E03.9 Hypothyroidism, unspecified; J45.20 Mild intermittent asthma, uncomplicated; K58.9 Irritable bowel syndrome, unspecified; K21.9 Gastro-esophageal reflux disease without esophagitis; F32.9 Major depressive disorder, single episode, unspecified; F41.9 Anxiety disorder, unspecified; Z78.0 Asymptomatic menopausal state; Z79.01 Long term (current) use of anticoagulants; Z79.82 Long term (current) use of aspirin; Z79.899 Other long term (current) drug therapy; I25.2 Old myocardial infarction; Z87.440 Personal history of urinary (tract) infections; Z86.711 Personal history of pulmonary embolism; Z86.718 Personal history of other venous thrombosis and embolism; Z86.72 Personal history of thrombophlebitis; Z95.5 Presence of coronary angioplasty implant and graft
CPT/HCPCS: 00910; 52332; 36416; 76000; 85610; J7120; C1769; C2617; J2405

== ENCOUNTER → 2018-12-09 12:14 | Outpatient (CLI) | payer MEDICARE, OTHER, SELFPAY ==
[2018-09-11 12:24] VITALS: BMI 28.2
[2018-12-09 12:40] VITALS: PULSE 69; PULSE 73; PULSE 82; PULSE 84; PULSE 85; PULSE 86; PULSE 87; O2SAT 94; O2SAT 95; O2SAT 96; O2SAT 97; O2SAT 98
--- NOTE | 2018-12-09 12:44 | CPS ---
PATIENT ARRIVED VIA W/C FOR 6 MIN WALK TESTING. (SHE WAS PREVIOUSLY SETUP ON OXYGEN(DASCO) POST HOSPITAL D/C AND IS WANTING TO GET RID OF IT.) SHE REQUIRED REST BREAKS FOR LEG FATIGUE AT 1 AND 3 MINUTES, AT 5 MIN LEG FATIGUE AND SOB. TEST COMPLETED ON ROOM AIR WITH PATIENT AMBULATING ON HER OWN.
--- NOTE | 2018-12-10 11:07 | PCM.PSN.6M ---
PSN 6 Minute Walk Test - 6 Minute Walk Test 6 Minute Walk Test: 6 Minute Walk Test PSN:6-Minute Walk Test Start: 12/09/18 12:40 Freq: Status: Active Protocol: [id number] Document 12/09/18 12:40 [facility] (Rec: 12/09/18 12:48 [facility] [id number]) 6 Minute Walk Test Date Performed 12/09/18 Time Performed 12:30 Height 5 ft 4 in Weight: 146 lb Weight in Pounds 146.[address]: Marlene Wooten Assistive device used: None Pre-test Oxygen Delivery Method Room Air Pulse Ox (%) 98 Pulse Rate (60-100 beats/min) 73 Dyspnea Christie Scale (0-10) 0 1st minute Oxygen Delivery Method Room Air Pulse Ox (%) 96 Pulse Rate (60-100 beats/min) 84 Dyspnea Christie Scale (0-10) 1 Number of Rests Taken 1 2nd minute Oxygen Delivery Method Room Air Pulse Ox (%) 96 Pulse Rate (60-100 beats/min) 85 Dyspnea Christie Scale (0-10) 1 3rd minute Oxygen Delivery Method Room Air Pulse Ox (%) 95 Pulse Rate (60-100 beats/min) 82 Dyspnea Christie Scale (0-10) 1 Number of Rests Taken 1 4th minute Oxygen Delivery Method Room Air Pulse Ox (%) 97 Pulse Rate (60-100 beats/min) 85 Dyspnea Christie Scale (0-10) 1 5th minute Oxygen Delivery Method Room Air Pulse Ox (%) 96 Pulse Rate (60-100 beats/min) 86 Dyspnea Christie Scale (0-10) 2 Number of Rests Taken 1 Reported Symptoms Increased Work of Breathing 6th minute Oxygen Delivery Method Room Air Pulse Ox (%) 94 Pulse Rate (60-100 beats/min) 87 Dyspnea Christie Scale (0-10) 2 Reported Symptoms Increased Work of Breathing Post-test Oxygen Delivery Method Room Air Pulse Ox (%) 97 Pulse Rate (60-100 beats/min) 69 Dyspnea Christie Scale (0-10) 0 Full Laps Walked 11 Partial Lap, Number of Tiles Walked 48 Total Distance Walked (ft) 497 12/09/18 12:44 Cardiopulmonary Services by Kiera Rodriguez PATIENT ARRIVED VIA W/C FOR 6 MIN WALK TESTING. (SHE WAS PREVIOUSLY SETUP ON OXYGEN(DASCO) POST [facility]OS[facility] D/C AND IS WANTING TO GET RID OF IT.) SHE REQUIRED REST BREAKS FOR LEG FATIGUE AT 1 AND 3 MINUTES, AT 5 MIN LEG FATIGUE AND SOB. TEST COMPLETED ON ROOM AIR WITH PATIENT AMBULATING ON HER OWN. Initialized on 12/09/18 12:44 - END OF NOTE - Interpretation Interpretation: The patient ambulated 697 feet over the course of 6 minutes beginning on room air without assistive devices. The patient did take several breaks during testing. Pretesting oxygen saturation was noted to be 98% on room air. With ambulation, the dalila oxygen saturation was 94%. This testing indicated the presence of impaired walk distance and significant exertional oxygen desaturation. - Recommendations Recommendations: There is no indication for the use of supplemental oxygen at this time. However, close interval follow-up is recommended, given the degree of oxygen desaturation noted during this study.
== END ==
PROVIDERS: Family Provider Family Medicine; PCP Family Medicine; Referring Provider Nurse Practitioner Acute Care; Visit Provider Nurse Practitioner Acute Care
DX: J96.90 Respiratory failure, unspecified, unspecified whether with hypoxia or hypercapnia (principal)
CPT/HCPCS: 94618

== ENCOUNTER → 2018-12-22 17:58 | Outpatient (CLI) | payer MEDICARE, OTHER, SELFPAY | PROVIDERS: Family Provider Family Medicine; PCP Family Medicine; Visit Provider Family Medicine | DX: R31.9 Hematuria, unspecified (principal) | CPT/HCPCS: 87086; 87088 ==